=== PATIENT | female | born 1940 | race Caucasian/White ===

== ENCOUNTER 2022-02-23 13:45 | Emergency (ER) | payer MEDICARE ==
[2022-02-23 15:03] VITALS: RESP 16; TEMP 97.9
[2022-02-23] MEDS ORDERED: SILVER NITRATE APPLICATOR 1 EACH STICK..EA. TOPICAL STA (17:11)
[2022-02-23] MEDS ORDERED: OXYMETAZOLINE 0.05% NASL SPRAY 1 SPRAY BOTTLE NASAL STA (17:11)
[2022-02-23] MEDS ORDERED: LIDOCAINE/EPINEPHR/TETRACAINE 5 ML BOTTLE TOPICAL ONE (17:11)
--- NOTE | 2022-02-23 17:27 | ED ---
ENT HPI - General Chief complaint: ENT Stated complaint: Bloody Nose/started @1200 Time Seen by Provider: 02/23/22 17:10 Source: patient, RN notes reviewed Mode of arrival: ambulatory Limitations: no limitations - History of Present Illness Initial comments: This is a pleasant 81-year-old female with history of diabetes mellitus, hypertension, hyperlipidemia, and thyroid disorder. She presents to the emergency department today stating that she had a nosebleed that started around noon. Patient states this went on for quite some time and so she decided to come to the emergency department. Patient was given nose clips in the waiting room. Bleeding has ceased. Patient denies any other bleeding sites. Patient denies any current symptomology. Patient is not on anticoagulation therapy. Patient states she had a nosebleed in the winter when her house was dry. Patient also has some seasonal ALLERGIES. No headache, no fever or chills, no changes in vision or hearing, no sore throat or difficulty with speech, no neck pain, no chest pain or shortness of breath, no abdominal pain, no nausea or vomiting, no changes in urination or bowel movements, no numbness or tingling, no extremity pain, no skin rashes or lesions. - Related Data Allergies Allergy/AdvReac Type Severity Reaction Status Date / Time aspirin Allergy Unknown Verified 02/23/22 15:04 Penicillins Allergy Unknown Verified 02/23/22 15:04 tree nut Allergy Unknown Verified 02/23/22 15:04 Review of Systems ROS Statement: Those systems with pertinent positive or pertinent negative responses have been documented in the HPI. ROS Other: All systems not noted in ROS Statement are negative. Past Medical History Past Medical History: Diabetes Mellitus, Hyperlipidemia, Hypertension, Thyroid Disorder History of Any Multi-Drug Resistant Organisms: None Reported Past Surgical History: Appendectomy, Orthopedic Surgery, Tonsillectomy Additional Past Surgical History / Comment(s): thyroidectomy Past Psychological History: No Psychological Hx Reported Smoking Status: Never smoker Past Alcohol Use History: None Reported Past Drug Use History: None Reported General Exam Limitations: no limitations General appearance: alert, in no apparent distress Head exam: Present: atraumatic, normocephalic, normal inspection Eye exam: Present: normal appearance, PERRL, EOMI. Absent: scleral icterus, conjunctival injection, periorbital swelling ENT exam: Present: normal exam, normal oropharynx, mucous membranes moist, normal external ear exam, other (Patient has evidence of recent bleeding from the anterior aspect of the right nasal septum. No current bleeding. There is no notable clot. No occlusion. No evidence of perforation. No evidence appear or nasal discharge.). Absent: mucous membranes dry Expanded Ear exam: Present: normal external inspection Mouth exam: Present: normal external inspection. Absent: drooling, trismus, muffled voice, tongue normal, tongue elevation Teeth exam: Present: normal inspection Throat exam: normal inspection. negative: tonsillar erythema, tonsillomegaly, tonsillar exudate, R peritonsillar mass, L peritonsillar mass Neck exam: Present: normal inspection, full ROM. Absent: tenderness, meningismus, lymphadenopathy Respiratory exam: Present: normal lung sounds bilaterally. Absent: respiratory distress, wheezes, rales, rhonchi, stridor, chest wall tenderness, accessory muscle use, decreased breath sounds, prolonged expiratory Cardiovascular Exam: Present: regular rate, normal rhythm, normal heart sounds. Absent: systolic murmur, diastolic murmur, rubs, gallop, clicks GI/Abdominal exam: Present: soft, normal bowel sounds. Absent: distended, tenderness, guarding, rebound, rigid Extremities exam: Present: normal inspection, full ROM, normal capillary refill. Absent: tenderness, pedal edema, joint swelling, calf tenderness Back exam: Present: normal inspection Neurological exam: Present: alert, oriented X3, CN II-XII intact Psychiatric exam: Present: normal affect, normal mood Skin exam: Present: warm, dry, intact, normal color. Absent: rash Course Vital Signs 02/23/22 14:59 Temperature 97.9 F Pulse Rate 84 Respiratory 16 Rate Blood Pressure 148/68 O2 Sat by Pulse 95 Oximetry Medical Decision Making - Medical Decision Making Patient's bleeding had ceased by the time I saw her. She was in no distress. Vital signs reviewed. No evidence of systemic illness. We'll use Afrin nasal spray, 2 sprays each nostril every 12 hours for 3 days. Patient has a follow-up with her doctor on Friday. I did warn the patient with the possibility of rebleeding and the possibility that she would need to return to the emergency department for nasal packing. Patient was told to return to the ER for any signs or symptoms worsen. Told to return immediately if any other problems arise. All questions answered. Treatment plan discussed. Patient in agreement Every effort has been made to ensure accuracy of this dictation. However, due to the limitations of electronic medical records and dictation devices, errors in charting still occur. Supervising physician is Dr. Vijay Obregon Clinical Impression: Acute anterior epistaxis Disposition: HOME SELF-CARE Condition: Good Instructions (If sedation given, give patient instructions): Nosebleed (ED) Additional Instructions: Use the nasal spray, 2 sprays to each nostril every 12 hours for 3 days only. Follow-up with your regular physician as directed. Return to the ER immediately if any symptoms worsen, new symptoms arise, or any other problems develop. Is patient prescribed a controlled substance at d/c from ED?: No Referrals: Isaac Benitez MD [Primary Care Provider] - 03/01/22 Time of Disposition: 17:27
[2022-02-23 17:53] VITALS: BP 146/54; PULSE 68
== END 2022-02-24 02:25 | disposition home or self-care (01) ==
LOC: EC 13:45
DX: R04.0 Epistaxis (principal); I10 Essential (primary) hypertension; E11.9 Type 2 diabetes mellitus without complications; E78.5 Hyperlipidemia, unspecified; Z79.899 Other long term (current) drug therapy
CPT/HCPCS: 30901; 99283

== ENCOUNTER → 2022-09-09 | Outpatient (CLI) | payer MEDICARE ==
[2022-09-09 14:16] LABS: Basophils # (A) 0.02 X 10*3/uL (0.00-0.10); Basophils % (A) 0.5 %; Eosinophils # (A) 0.23 X 10*3/uL (0.04-0.35); HCT 33.6 % (37.2-46.3); HGB 10.7 g/dL (12.0-15.0); Immature Grans, Automated 0.3 %; Lymphocytes # (A) 0.83 X 10*3/uL (0.90-5.00); Lymphocytes % (A) 21.5 %; MCH 31.6 pg (27.0-32.0); MCHC 31.8 g/dL (32.0-37.0); MCV 99.1 fL (80.0-97.0); Mean Platelet Volume 11.2 fL (9.5-12.2); Monocytes # (A) 0.32 X 10*3/uL (0.20-1.00); Monocytes % (A) 8.3 %; NRBC Per 100 WBC 0 /100 WBCS (0.0-0.0); Neutrophils # (A) 2.45 X 10*3/uL (1.80-7.70); Neutrophils % (A) 63.4 %; Platelet Count 110 X 10*3/uL (140-440); RBC 3.39 X 10*6/uL (4.10-5.20); RDW 14.6 % (11.5-14.5); WBC 3.86 X 10*3/uL (4.50-10.00)
[2022-09-09 15:47] LABS: African American GFR (CKD) 43.3 (60.0-200.0); Anion Gap 9.7 mmol/L (10.00-18.00); Blood Urea Nitrogen 27.8 mg/dL (9.0-27.0); Carbon Dioxide 23.1 mmol/L (20.0-27.5); Non-African American GFR(CKD) 37.4 (60.0-200.0); Potassium 4.5 mmol/L (3.5-5.5)
== END | disposition home or self-care (01) ==
LOC: LABPAT 10:12
PROVIDERS: ATTEND Internal Medicine
DX: Z01.818 Encounter for other preprocedural examination (principal); R06.02 Shortness of breath
CPT/HCPCS: 80051; 82565; 84520; 85025

== ENCOUNTER 2022-09-18 09:35 | Day surgery (SDC) | payer MEDICARE ==
[~2022-09-18 09:35] MED LIST: ALPRAZolam 0.25 MG TAB PO PRN; ALPRAZolam 0.5 MG TAB PO PRN; ATORVASTATIN 80 MG TAB PO STA; NITROGLYCERIN SL TABS 0.4 MG TAB SUBLINGUAL PRN; SODIUM CHLORIDE 0.9% 1,000 ML in EMPTY BAG 1 BAG IV SCH
[2022-09-18 10:09] LABS: Glucose,Whole Blood 90 mg/dL (70-110)
[2022-09-18 10:15] LABS: Basophils % (A) 0 %; Eosinophils # (A) 0.2 k/uL (0-0.7); Eosinophils % (A) 4 %; HCT 36.1 % (34.0-46.0); HGB 11.9 gm/dL (11.4-16.0); Lymphocytes # (A) 0.8 k/uL (1.0-4.8); Lymphocytes % (A) 15 %; MCH 32.5 pg (25.0-35.0); MCHC 32.9 g/dL (31.0-37.0); MCV 98.9 fL (80.0-100.0); Monocytes # (A) 0.2 k/uL (0-1.0); Monocytes % (A) 5 %; Neutrophils # (A) 3.8 k/uL (1.3-7.7); Neutrophils % (A) 74 %; Platelet Count 121 k/uL (150-450); RBC 3.65 m/uL (3.80-5.40); RDW 14.2 % (11.5-15.5); WBC 5.2 k/uL (3.8-10.6)
[2022-09-18 10:27] VITALS: RESP 16; TEMP 97.7
[2022-09-18] MEDS ORDERED: VERAPAMIL 2.5 MG/ML 2 ML AMP ONE (12:52)
[2022-09-18] MEDS ORDERED: fentaNYL (PF) 50 MCG/ML 2 ML AMP ONE (12:53)
[2022-09-18] MEDS ORDERED: HEPARIN SODIUM 1,000 UN/ML (10ML VL) ONE (12:53)
[2022-09-18] MEDS ORDERED: MIDAZOLAM 2 MG/2 ML VIAL IV ONE (12:58)
[2022-09-18] MEDS ORDERED: fentaNYL (PF) 50 MCG/ML 2 ML AMP IV ONE (12:58)
[2022-09-18] MEDS ORDERED: LIDOCAINE 1% INJ 10MG/ML (5 ML VIAL-PF) SQ ONE (12:59)
[2022-09-18] MEDS ORDERED: VERAPAMIL SYRINGE (5 MG/10 ML) INTRAARTER ONE (13:00)
[2022-09-18] MEDS ORDERED: HEPARIN SODIUM 1,000 UN/ML (10ML VL) IV ONE (13:03)
[2022-09-18] MEDS ORDERED: IOPAMIDOL-370 125ML BTL INJ ONE (13:13)
--- NOTE | 2022-09-18 13:27 | P.CARDCATH ---
Description of Procedure: PROCEDURES PERFORMED: Left heart catheterization, bilateral coronary angiography INDICATION: Abnormal stress test, dyspnea on exertion CONSENT:I have discussed the risks, benefits and alternative therapies for the above-mentioned procedure and for both sedation/analgesia as well as necessary blood product administration, if indicated, as they pertain to this patient. The patient has indicated understanding and acceptance of the risks and procedures discussed. PROCEDURE: After the risks, benefits and alternatives of the above mentioned procedure explained in detail with the patient, informed consent was obtained. Patient was taken to the catheterization lab and prepped and draped in usual fashion. She was given pre-hydration given chronic kidney disease. 1% lidocaine was used to anesthetize the right radial artery. A 6-Turkmen sheath was placed in the right radial artery using modified Seldinger technique. Left coronary angiography was performed with a 5-Turkmen JL 3.5 catheter and right coronary angiography was performed with a 6-Turkmen AR2 catheter in various views. A 5-Turkmen FR5 catheter was inserted into the left ventricle and pressure measurements were obtained. The right radial sheath was removed and a TR band was placed with hemostasis achieved. The patient tolerated the procedure well. Patient was transported back to the post catheterization holding area in stable condition. Conscious Sedation: Patient was monitored under the direct supervision of vision of myself for conscious sedation using Versed and fentanyl for a total duration of 12 minutes HEMODYNAMICS: Aorta: 106/78 LV: 110/4, LVEDP 12 SELECTIVE CORONARY ARTERIOGRAPHY: LEFT MAIN: The left main is a large caliber vessel which bifurcates into the LAD and circumflex. There is no significant stenosis. LEFT ANTERIOR DESCENDING CORONARY ARTERY: LAD is a large caliber vessel which wraps around to the apex. There is significant tortuosity as well as a mid LAD 10-20% stenosis and otherwise normal. LEFT CIRCUMFLEX CORONARY ARTERY: Left circumflex is a moderate caliber vessel without significant stenosis however is tortuous. RIGHT CORONARY ARTERY: The right coronary artery is a large caliber vessel which gives off a PDA and PLV branch and is the dominant vessel. There is no significant stenosis. FINAL IMPRESSION: 1. Relatively normal coronary arteries as described above other than mild mid LAD luminal irregularities and tortuosity 2. Normal left sided filling pressures PLAN: 1. Aggressive risk factor modification per most recent ACC/AHA guidelines. 2. Follow-up in the office in 1-2 weeks.
[2022-09-18 16:41] VITALS: BP 115/56; PULSE 58
== END 2022-09-18 17:25 | disposition home or self-care (01) ==
LOC: CATHCVL 09:35
PROVIDERS: ATTEND Internal Medicine
DX: I77.1 Stricture of artery (principal); I50.32 Chronic diastolic (congestive) heart failure; I11.0 Hypertensive heart disease with heart failure; E11.9 Type 2 diabetes mellitus without complications; E78.5 Hyperlipidemia, unspecified; E66.9 Obesity, unspecified
CPT/HCPCS: 85025; 93458; J2250; J2001; J3010; J1644; Q9967

== ENCOUNTER → 2024-07-28 | Outpatient (CLI) | payer MEDICARE ==
--- NOTE | 2024-07-28 08:49 | BD ---
EXAMINATION TYPE: Axial Bone Density DATE OF EXAM: 07/28/2024 CLINICAL HISTORY: 84 years old Female. ICD-10 CODE: M81.0 AGE-RELATED OSTEOPOROSIS W/ , Additional H istory: Height: 64 Weight: 228.0 FRAX RISK QUESTIONS: Alcohol (3 or more units per day): no Family History (Parent hip fracture): no Glucocorticoids (More than 3mos): no (Ex: prednisone, prednisolone, methylprednisolone, dexamethasone, and hydrocortisone). History of Fracture in Adulthood: no Secondary Osteoporosis: 1. Type 1 Diabetes: no 2. Hyperthyroidism: no 3. Menopause before 45: no 4. Malnutrition: no 5. Chronic liver disease: no Rheumatoid Arthritis: no Current Tobacco Use: no RISK FACTORS HISTORY OF: Hip Fracture (Right/Left): no Spine Fracture: no History of Wrist Fracture: no Surgery to Spine/Hip(right/left)/Wrist (right/left): no MEDICATIONS: Thyroid Medications: Levothyroxine How Long: since age 13 Osteoporosis Medications: no EXAM MEASUREMENTS: Bone mineral densitometry was performed using the Classical Connection System. Bone mineral density as measured about the Lumbar spine is: ----- L1-L4(G/cm2):0.882 T Score Values are as follows: ----- L1: -2.2 ----- L2: -3.1 ----- L3: -1.8 ----- L4: -2.9 ----- L1-L4: -2.5 Z Score Values are as follows: ----- L1: -1.5 ----- L2: -2.4 ----- L3: -1.1 ----- L4: -2.2 ----- L1-L4: -1.8 Baseline Study Bone mineral density about the R hip (g/cm2): 0.856 Bone mineral density about the L hip (g/cm2): 0.868 T Score values are as follows: -----R Neck: -2.0 -----L Neck: -1.0 -----R Total: -1.2 -----L Total: -1.1 Z Score values are as follows: -----R Neck: -0.5 -----L Neck: 0.5 -----R Total: 0.1 -----L Total: 0.2 Baseline Study FRAX%s: The graph provided illustrates a 14.3% chance for a major osteoporotic fx and a 4.3% chance f or the hips probability for fx in 10 years time. IMPRESSION: Osteopenia (T Score between -2.5 and -1). There is slightly increased risk of fracture and the patient may be considered for treatment. Re-Screen 2-5 years. NOTE: T-SCORE=SD OF THE YOUNG ADULT MEAN. [facility], , 07/28/2024 8:47 AM
[2024-07-28 15:08] LABS: Basophils # (A) 0.05 X 10*3/uL (0.00-0.10); Basophils % (A) 1.1 %; Eosinophils # (A) 0.35 X 10*3/uL (0.04-0.35); Eosinophils % (A) 7.6 %; HCT 35.6 % (37.2-46.3); HGB 11.5 g/dL (12.0-15.0); Lymphocytes # (A) 0.76 X 10*3/uL (0.90-5.00); Lymphocytes % (A) 16.6 %; MCH 33.2 pg (27.0-32.0); MCHC 32.3 g/dL (32.0-37.0); MCV 102.9 FL (80.0-97.0); Mean Platelet Volume 10.8 FL (9.5-12.2); Monocytes # (A) 0.47 X 10*3/uL (0.20-1.00); Monocytes % (A) 10.2 %; NRBC Per 100 WBC 0 X 10*3/uL (0.00-0.01); Neutrophils # (A) 2.95 X 10*3/uL (1.80-7.70); Neutrophils % (A) 64.3 %; Platelet Count 108 X 10*3/uL (140-440); RBC 3.46 X 10*6/uL (4.10-5.20); RDW 14.6 % (11.5-14.5); WBC 4.59 X 10*3/uL (4.50-10.00)
[2024-07-28 16:09] LABS: Chol/HDL Ratio 1.79 Ratio; LDL Cholesterol,Calculated 32.2 mg/dL (0.0-131.0); Uric Acid 7.7 mg/dL (2.9-7.7); VLDL Calculation 15.42 mg/dL (5.00-40.00)
[2024-07-28 16:10] LABS: ALT 30 U/L (8-44); AST 58 U/L (13-35); Albumin 3.3 g/dL (3.8-4.9); Albumin/Globulin Ratio 1.03 Ratio (1.60-3.17); Alkaline Phosphatase 91 U/L (41-126); BUN/Creat Ratio 18.86 Ratio (12.00-20.00); Blood Urea Nitrogen 26.4 mg/dL (9.0-27.0); Calcium 8.8 mg/dL (8.7-10.3); Carbon Dioxide 23.1 mmol/L (21.6-31.8); Chloride 110 mmol/L (96-109); Globulin 3.2 g/dL (1.6-3.3); Glucose 107 mg/dL (70-110); Potassium 4.2 mmol/L (3.5-5.5); Sodium 144 mmol/L (135-145); Total Bilirubin 2.7 mg/dL (0.3-1.2); Total Protein 6.5 g/dL (6.2-8.2)
[2024-07-28 16:12] LABS: Erythrocyte Sedimentation Rate 32 mm/Hr (0-30)
--- NOTE | 2024-07-30 11:13 | MM ---
Reason for Exam: Screening (asymptomatic). Last mammogram was performed 6 year(s) and 5 month(s) ago. Patient History: Menarche at age 13. Patient has no children. Maternal cousin had breast cancer at or over age 50. Last menstrual period: Risk Values: Shazia 5 year model risk: 1.7%. NCI Lifetime model risk: 2.0%. Prior Study Comparison: 07/14/2015 Bilateral Screening Mammogram, [facility]. 07/18/2016 Bilateral Screening Mammogram, [facility]. 03/01/2018 Bilateral Screening Mammogram, [facility]. Tissue Density: There are scattered areas of fibroglandular density. Findings: Analyzed By CAD. Right breast: Enlarging mass right breast RCC view slightly lateral and slightly lower at posterior depth approximately 13 cm from the nipple measuring up to 21 mm. Left breast: There is no suspicious group of microcalcifications or new suspicious mass. Overall Assessment: Incomplete: need additional imaging evaluation, BI-RAD 0 Management: Diagnostic Breast Ultrasound of the right breast. [facility] will attempt to contact patient to return for supplemental views and ultrasound if indicated. Patient should continue monthly self-breast exams. A clinical breast exam by your physician is recommended on an annual basis. This exam should not preclude additional follow-up of suspicious palpable abnormalities. Note on Shazia scores and lifetime risk: 1. A Shazia score greater than 3% is considered moderate risk. If this is the case, consider specialist referral to assess eligibility for a risk reducing agent. 2. If overall lifetime risk for the development of breast cancer is 20% or higher, the patient may qualify for future screening with alternating mammogram and breast MRI. [facility], , 07/30/2024 11:10 AM. Electronically signed and approved by: Jitendra Zhong DO
== END | disposition home or self-care (01) ==
LOC: RADMAMWWP 07:18
PROVIDERS: ATTEND Internal Medicine Geriatric Medicine
DX: Z12.31 Encounter for screening mammogram for malignant neoplasm of breast (principal); M81.0 Age-related osteoporosis without current pathological fracture; I13.0 Hypertensive heart and chronic kidney disease with heart failure and stage 1 through stage 4 chronic kidney disease, or unspecified chronic kidney disease; D64.9 Anemia, unspecified; E11.22 Type 2 diabetes mellitus with diabetic chronic kidney disease; E78.2 Mixed hyperlipidemia; E03.9 Hypothyroidism, unspecified; M81.8 Other osteoporosis without current pathological fracture; Z80.3 Family history of malignant neoplasm of breast; R92.323 Mammographic fibroglandular density, bilateral breasts
CPT/HCPCS: 77063; 77067; 77080; 80053; 80061; 83036; 84443; 84550; 85025; 85652

== ENCOUNTER → 2024-08-04 | Outpatient (CLI) | payer MEDICARE ==
--- NOTE | 2024-08-04 15:13 | USB ---
Reason for Exam: Additional evaluation requested from abnormal screening. Patient History: Menarche at age 13. Patient has no children. Maternal cousin had breast cancer at or over age 50. Risk Values: Shazia 5 year model risk: 1.7%. NCI Lifetime model risk: 2.0%. Prior Study Comparison: 07/18/2016 Bilateral Screening Mammogram, [facility]. 03/01/2018 Bilateral Screening Mammogram, [facility]. 07/28/2024 Bilateral MG 3D screening mammo w/cad, [facility]. Findings: The whole breast of the right breast, the axilla of the right breast and the retroareolar of the right breast were scanned. A complete US of all four quadrants of the breast, axilla, and retro-areolar region were reviewed. At the 5:00 position, 9 cm from the nipple, there is an irregular hypoechoic solid mass with angular margins and internal vascularity measuring 2.0 x 1.9 x 1.6 cm, mammographic correlate, biopsy is recommended. At the 7:00 position, 10 cm from the nipple, there are 3 closely grouped hypoechoic areas. Biopsy is recommended of the deeper bilobed hypoechoic lesion measuring 1.6 x 1.0 x 1.4 cm. The other 2 areas measure 2.0 x 1.3 x 0.5 cm and 0.8 x 0.5 cm and can be followed. At the 10:00 position, 5 cm from the nipple, there is a lobulated heterogeneous lesion with internal vascularity measuring 1.6 x 1.2 x 1.1 cm for which tissue sampling is recommended. At the 10:00 position, also 5 cm from the nipple, there is a nonspecific hypoechoic lesion too small to characterize measuring 4 mm. No other solid or cystic lesion or axillary lymphadenopathy. Overall Assessment: Highly suggestive of malignancy, BI-RAD 5 Management: Ultrasound Core Biopsy of the right breast. 3 site biopsy, 5:00 very suspicious mammographic correlate as well as the 7:00 and 10:00 positions. Results were given to the patient verbally at the time of exam. [facility], , 08/04/2024 3:10 PM. Electronically signed and approved by: Wilman Velásquez M.D. Radiologist
== END | disposition home or self-care (01) ==
LOC: RADUSWWP 14:08
PROVIDERS: ATTEND Internal Medicine Geriatric Medicine
DX: R92.8 Other abnormal and inconclusive findings on diagnostic imaging of breast (principal); Z80.3 Family history of malignant neoplasm of breast

== ENCOUNTER → 2024-08-23 | Day surgery (SDC) | payer MEDICARE ==
--- NOTE | 2024-08-30 10:15 | MM ---
Reason for Exam: Post Procedure Mammogram. Last screening mammogram was performed less than 1 month ago. Patient History: Menarche at age 13. Patient has no children. Maternal cousin had breast cancer at or over age 50. Risk Values: Shazia 5 year model risk: 1.7%. NCI Lifetime model risk: 2.0%. Prior Study Comparison: 07/18/2016 Bilateral Screening Mammogram, [facility]. 03/01/2018 Bilateral Screening Mammogram, [facility]. 07/28/2024 Bilateral MG 3D screening mammo w/cad, [facility]. Tissue Density: Right: There are scattered areas of fibroglandular density. Pathology Description: Location: 7 o'clock. Marker Left Behind. Needle Type: Celero Cores: 5 Pathology Description: Location: 5 o'clock. Marker Left Behind. Needle Type: Celero Cores: 3 The procedure of ultrasound guided core biopsy was explained to the patient. Benefits, alternatives, and risks were discussed. An informed consent was then obtained. The patient was placed in supine positioning for imaging and for the procedure. The overlying skin was prepped and draped in usual sterile fashion. Lidocaine buffered with bicarbonate was used as anesthetic into the skin and subcutaneous tissue up to area of concern in the right 5:00 and right 7:00 breast. A discrete third lesion was not identified Under ultrasound guidance, a 12-gauge vacuum assisted biopsy gun device was used to obtain 3 core samples from the right 5:00 lesion and 5 samples from the right 7:00 lesion. Following this, a biopsy clips were placed within each lesion. The patient tolerated the procedure well without any immediate complication. The patient was kept in the radiology department for short stay after the procedure and then discharged home in stable condition. Postprocedure mammogram: The patient was transferred to mammography for physician ordered post procedure mammogram for clip placement verification. Post procedure mammogram demonstrates the clip in appropriate placement. Impression: Successful, uncomplicated ultrasound guided core biopsy of 2 lesions within the right breast at the 5 and 7:00 positions. As noted a discrete 10:00 lesion could not be identified and likely reflected lobulation from the 7:00 lesion. Consider MRI for improved characterization. Pathology Results: Result: Malignant, Invasive ductal carcinoma. Pathology and radiology were reviewed. Findings are concordant. A. RIGHT BREAST, 5:00, CORE BIOPSY: Invasive ductal carcinoma, preliminarily Grade 2 (see Surgical Pathology Cancer Case Summary and comment). Perineural invasion present. B. RIGHT BREAST, 7:00, CORE BIOPSY: Fragments of intraductal papilloma with columnar cell change and usual ductal hyperplasia. Overall Assessment: Malignant Assessment: MG diagnostic mammo RT wo CAD - Right: Known biopsy proven malignancy, BI-RAD 6. Management: Surgical Consultation of the right breast. Electronically signed and approved by: Mir Florentino M.D. Radiologis
== END ==
LOC: RADUSWWP 12:39
PROVIDERS: ATTEND Surgery
DX: C50.911 Malignant neoplasm of unspecified site of right female breast (principal); Z80.3 Family history of malignant neoplasm of breast; Z17.0 Estrogen receptor positive status [ER+]
CPT/HCPCS: 88305; 88342; 88341; 77065; 19083; 19084; A4648

== ENCOUNTER → 2024-09-10 | Outpatient (CLI) | payer MEDICARE ==
--- NOTE | 2024-09-15 08:46 | BMR ---
EXAM DATE: 09/10/2024 EXAM DESCRIPTION: MRI-Breast Bilat (W/WO Contrast) INDICATION: Recent diagnosis of right breast cancer. Right breast 5 o'clock core biopsy invasive ductal carcinoma, 7 o'clock intraductal papilloma COMPARISON: PRIOR MRIs: None available. Correlation to mammograms: 08/23/2024, 07/28/2024. Correlation to ultrasound: 08/23/2024. CONTRAST: 10 cc Gadavist IV gadolinium contrast TECHNIQUE: Multiplanar multisequence MR imaging of both breasts was performed with a dedicated breast coil. Images were obtained before and after administration of IV gadolinium, using the standard breast mass protocol. Computer aided detection was utilized for interpretation. FINDINGS: LMP: Postmenopausal General breast composition: There are scattered areas of fibroglandular tissue Background parenchymal enhancement: Moderate RIGHT BREAST: Positioning of the breast for correlation with mammogram and prior ultrasound is somewhat limited given breast size. Irregular heterogeneously enhancing mass in the right breast at approximately 6 o'clock, measures 2.8 x 2.6 x 2.0 cm approximately 10 cm from the nipple corresponding to site of note malignancy. There is a lobulated 1.8 x 1.5 cm mass in the right breast approximately 12 o'clock, 5 cm from the nipple with heterogeneous enhancement and areas of washout kinetics. No evidence of abnormal enhancement of the nipple or chest wall. LEFT BREAST: The T2 weighted series shows no areas of abnormal signal intensity. Review of the dynamic series shows no early or abnormal enhancement. LYMPH NODES: Enlarged right internal mammary lymph node measuring 0.7 cm in short axis. 0.7 cm cardiophrenic lymph node. Miscellaneous findings:Pulmonary arterial trunk appears prominent. There is mildly lobulated contour of the liver with perihepatic ascites. Abnormal signal intensity within the right aspect of the sternum. IMPRESSION: RIGHT BREAST: Positioning of the breast for correlation with mammogram and prior ultrasound is somewhat limited given breast size. 1. Known malignancy at approximately 6 o'clock measures 2.8 x 2.6 x 2.0 cm 2. Additional enhancing mass at 12 o'clock, 5 cm from the nipple estimating 1.8 x 1.5 cm, potentially corresponding to ultrasound mass reported as 10 o'clock. Targeted ultrasound with biopsy is recommended if breast conservation is planned. 3. Enlarged right internal mammary and cardiophrenic lymph nodes with lobulated appearance of the liver and perihepatic ascites, abnormal sternal signal intensity. CT of the chest, abdomen, and pelvis is recommended to assess for metastasis. LEFT BREAST: No MR evidence of malignancy. OVERALL ASSESSMENT -- BI-RADS 4: Suspicious for malignancy MTDD
== END | disposition home or self-care (01) ==
LOC: RADMRIMAIN 13:55
PROVIDERS: ATTEND Surgery
DX: C50.811 Malignant neoplasm of overlapping sites of right female breast (principal); N63.22 Unspecified lump in the left breast, upper inner quadrant; N63.25 Unspecified lump in the left breast, overlapping quadrants; R18.8 Other ascites
CPT/HCPCS: C8908; A9585; 77049

== ENCOUNTER → 2024-09-27 | Outpatient (CLI) | payer MEDICARE ==
--- NOTE | 2024-09-27 09:27 | USB ---
Reason for Exam: Additional evaluation requested from prior study. Patient History: Menarche at age 13. Patient has no children. Breast cancer, right, age 84. 08/23/2024, US biopsy breast add'l VAD RT on the Right side. 08/23/2024, Malignant US biopsy breast VAD RT on the right side. Maternal cousin had breast cancer at or over age 50. Technique: Method: Targeted. Prior Study Comparison: 03/01/2018 Bilateral Screening Mammogram, [facility]. 07/28/2024 Bilateral MG 3D screening mammo w/cad, [facility]. 08/23/2024 Right MG diagnostic mammo RT wo CAD, [facility]. Findings: The upper section of the breast of the right breast, the axilla of the right breast and the retroareolar of the right breast were scanned. Targeted ultrasound right breast 9:00 to 3:00 including the 7:00 position. Scanning of the axilla as well. At 9:00, 7 cm from the nipple, there is a nonspecific 7 mm cystic versus hypoechoic structure. In contrast bolus could reflect debris artifact. At 9:00, 3 cm from the nipple, there is a benign 6 mm cyst. At the 10:00 position, 3 cm from the nipple, there is a lobulated heterogeneous hypoechoic lesion with some faint marginal vascularity. Internal calcifications are suggested. However, on antiradial imaging, the area appears to be bilobed measuring up to 3.0 cm (image 28 of 45) and demonstrates a microclip at the midpoint of the 2 lobes probably corresponding to the 7:00 biopsy site. We note recent biopsy results from 7:00 position showed papilloma. Recommend repeat biopsy of both the shadowing area and the soft tissue nodularity. Again, refer to the ultrasound image 28. This likely corresponds to the reported 12:00 abnormality on MRI. Heterogeneous dense tissue is present throughout including the 12:00 position. No axillary adenopathy. Overall Assessment: Known biopsy proven malignancy, BI-RAD 6 Management: Ultrasound Core Biopsy of the right breast. Bilobed 10:00 lesion (refer to image 28 of 45). Recommend sampling of both the shadowing area and soft tissue nodularity. Likely corresponds to the 12:00 MRI abnormality. Given the presence of a microclip, a portion of this also likely corresponds to the 7:00 biopsied papilloma. Results were given to the patient verbally at the time of exam. [facility], , 09/27/2024 9:24 AM. Electronically signed and approved by: Wilman Velásquez M.D. Radiologist
== END | disposition home or self-care (01) ==
LOC: RADUSWWP 07:49
PROVIDERS: ATTEND Surgery
DX: R90.81 Abnormal echoencephalogram (principal); Z80.3 Family history of malignant neoplasm of breast; Z85.3 Personal history of malignant neoplasm of breast

== ENCOUNTER → 2024-09-30 | Outpatient (CLI) | payer MEDICARE ==
--- NOTE | 2024-10-02 12:00 | PE ---
EXAMINATION TYPE: PET CT fusion skull to thigh DATE OF EXAM: 09/30/2024 CLINICAL INDICATION:Female, 84 years old with history of C50.311 BREAST CANCER; TECHNIQUE: Following the intravenous administration of 12.09 mCi of F-18 FDG, whole body images are performed from the skull base to the midthigh. Images are reviewed on the computer in the coronal, axial, and sagittal planes. Reconstructed rotating images are created on independent workstation and reviewed on the computer. A non-contrast CT is performed in conjunction with the PET scan. Glucose level 96 mg/dL CT DLP: 936.92 mGycm, Automated exposure control for dose reduction was used. COMPARISON: CT None, PET/CT None, MRI: 09/10/2024 FINDINGS: Mediastinal SUV mean is 2.3. Hepatic parenchyma SUV mean is 2.5. SKULL BASE AND NECK: No suspicious radiotracer activity. CHEST, MEDIASTINUM, AND HILAR REGION: Right breast mass at 6:00 measuring 1.9 cm with a maximum SUV of 3.2. No FDG avid axillary lymphadenopathy identified. ABDOMEN AND PELVIS: Enlarged 2.5 cm FDG avid mesenteric lymph node (series 3, image 159). Demonstrates a maximum SUV of 1 5.7. MUSCULOSKELETAL STRUCTURES: No suspicious radiotracer activity. OTHER CT: Bilateral aphakia. Bilateral carotid bulb calcifications. Bilateral AC joint arthropathy. A therosclerotic calcification of the aorta and its branches. Dilated main pulmonary artery measuring u p to 4.1 cm which can be seen with pulmonary arterial hypertension. Cardiomegaly. Small right pleural effusion. Lingular calcified granuloma. Multiple level degenerative changes of the visualized spine. Small amount of free fluid in the pelvis. Small fat filled umbilical hernia. Trace perihepatic ascit es. Suggestive recanalization umbilical vein. Suggested subtle nodularity of the liver. IMPRESSION: 1. Mildly FDG avid right breast lesion corresponding to known breast cancer. 2. FDG avid enlarged mesenteric lymph node highly concerning for metastasis. 3. Subtle surface nodularity of the liver with trace perihepatic ascites and suggestive recanalizati on of the umbilical vein. Correlate for hepatic cirrhosis. 4. Small right pleural effusion. [facility], , 10/02/2024 11:58 AM
== END | disposition home or self-care (01) ==
LOC: RADPETMAIN 09:26
PROVIDERS: ATTEND Internal Medicine Hematology & Oncology
DX: C50.311 Malignant neoplasm of lower-inner quadrant of right female breast (principal); J90 Pleural effusion, not elsewhere classified; R59.0 Localized enlarged lymph nodes
CPT/HCPCS: 78815; A9552

== ENCOUNTER → 2024-10-04 | Day surgery (SDC) | payer MEDICARE ==
--- NOTE | 2024-10-05 08:26 | USB ---
Procedure Description: Discontinued right breast biopsy Findings: Technique utilized:US discontinued breast bx RT Image; Ultrasound imaging of: Area of concern. no bill, no charge. Limited imaging of the breast at 10:00 5 cm from nipple demonstrates lesion with biopsy clip placed. The appearance of this demonstrates ASSESSMENT: 4 - Suspicious. Management: Needle Localization of the right breast. Area of concern has a different morphology on today's exam and there is a biopsy clip in place. This was previously biopsied is a high risk lesion. No procedure was performed. Ordering provider was notified and will contact the patient. A clinical breast exam by your physician is recommended on an annual basis and results should be correlated with mammographic findings. This exam should not preclude additional follow-up of suspicious palpable abnormalities. Results were given to the patient verbally at the time of exam. [facility], , 10/04/2024 2:45 PM . Electronically signed and approved by: Jitendra Zhong DO
== END ==
LOC: RADUSWWP 11:58
PROVIDERS: ATTEND Surgery
DX: Z53.8 Procedure and treatment not carried out for other reasons (principal); R92.8 Other abnormal and inconclusive findings on diagnostic imaging of breast

== ENCOUNTER 2024-11-21 04:25 | Inpatient (IN) | payer MEDICARE ==
--- NOTE | 2024-11-21 04:44 | ED ---
General Adult HPI <Ki Mckinney - Last Filed: 11/21/24 08:43> - General Source: patient, EMS, RN notes reviewed, old records reviewed Mode of arrival: EMS Limitations: no limitations <Jitendra Aguilar - Last Filed: 11/21/24 21:01> - General Chief complaint: Chest Pain Stated complaint: Chest Pain Time Seen by Provider: 11/21/24 04:28 - History of Present Illness Initial comments: 84-year-old female with an episode of chest discomfort which began approximately 1 hour prior to arrival. Patient describes it as a pain pressure across her chest. No associated vomiting. No diaphoresis. No prior history of CAD. Patient states the pain is completely resolved at this time. Denies dyspnea. Denies fever. (Jitendra Aguilar) - Related Data Home Medications Medication Instructions Recorded Confirmed Atorvastatin [Lipitor] 40 mg PO HS 09/17/22 11/21/24 Ergocalciferol [Vitamin D2 (1250 1,250 mcg PO Q14D 09/17/22 11/21/24 Mcg = 49327 Iu)] Furosemide [Lasix] 20 mg PO DAILY 09/17/22 11/21/24 Levothyroxine Sodium [Synthroid] 125 mcg PO DAILY 09/17/22 11/21/24 lisinopriL 2.5 mg PO DAILY 09/17/22 11/21/24 metFORMIN HCL 500 mg PO BID 09/17/22 11/21/24 Allergies Allergy/AdvReac Type Severity Reaction Status Date / Time aspirin Allergy Unknown Verified 11/21/24 10:38 Penicillins Allergy Rash/Hives Verified 11/21/24 10:38 codeine AdvReac Nausea & Verified 11/21/24 10:38 Vomiting Review of Systems ROS Other: All systems not noted in ROS Statement are negative. <Ki Mckinney - Last Filed: 11/21/24 08:43> ROS Other: All systems not noted in ROS Statement are negative. <Jitendra Aguilar - Last Filed: 11/21/24 21:01> ROS Statement: Those systems with pertinent positive or pertinent negative responses have been documented in the HPI. Past Medical History Past Medical History: Cancer, Chest Pain / Angina, Diabetes Mellitus, Hyperlipidemia, Hypertension, Osteoarthritis (OA), Skin Disorder, Thyroid Disorder Additional Past Medical History / Comment(s): SOB w/minimal exertion, frequent foot swelling, gallstone, ?blood clot behind knee back in the s, leg cramps; Aug 2024 dx right breast cancer, chronic loose bowels, bruises easy History of Any Multi-Drug Resistant Organisms: None Reported Past Surgical History: Appendectomy, Joint Replacement, Orthopedic Surgery, Tonsillectomy Additional Past Surgical History / Comment(s): thyroidectomy, right wrist surg, cataracts removed, left knee replacement, colonoscopies Past Anesthesia/Blood Transfusion Reactions: No Reported Reaction Past Psychological History: No Psychological Hx Reported Smoking Status: Never smoker Past Alcohol Use History: None Reported Past Drug Use History: None Reported - Past Family History Mother Family Medical History: COPD Additional Family Medical History / Comment(s): of emphysema Father Family Medical History: Cancer Additional Family Medical History / Comment(s): lung <Jitendra Aguilar N - Last Filed: 11/21/24 21:01> General Exam Limitations: no limitations General appearance: alert, in no apparent distress Head exam: Present: atraumatic, normocephalic Eye exam: Present: normal appearance, PERRL ENT exam: Present: normal exam Neck exam: Present: normal inspection. Absent: tenderness, meningismus Respiratory exam: Present: normal lung sounds bilaterally. Absent: respiratory distress, wheezes Cardiovascular Exam: Present: regular rate, normal rhythm GI/Abdominal exam: Present: soft. Absent: distended, tenderness Extremities exam: Present: normal inspection, normal capillary refill Neurological exam: Present: alert, oriented X3, CN II-XII intact. Absent: motor sensory deficit Psychiatric exam: Present: normal affect, normal mood Skin exam: Present: warm, dry, intact <Jitendra Aguilar - Last Filed: 11/21/24 21:01> Course Vital Signs 11/21/24 11/21/24 11/21/24 04:30 05:35 07:37 Temperature 97.7 F 97.8 F Pulse Rate 89 84 72 Respiratory 16 16 20 Rate Blood Pressure 125/58 102/51 123/52 O2 Sat by Pulse 97 95 95 Oximetry 11/21/24 11/21/24 11/21/24 09:25 10:40 14:00 Temperature Pulse Rate 64 59 L 63 Respiratory 18 18 20 Rate Blood Pressure 120/52 132/55 118/60 O2 Sat by Pulse 97 97 96 Oximetry 11/21/24 11/21/24 11/21/24 15:20 18:22 19:53 Temperature 97.8 F 98.1 F Pulse Rate 62 73 72 Respiratory 20 16 16 Rate Blood Pressure 121/59 121/62 122/74 O2 Sat by Pulse 95 96 94 L Oximetry Medical Decision Making - Lab Data Result diagrams: 11/21/24 04:37 11/21/24 04:37 <Ki Mckinney - Last Filed: 11/21/24 08:43> - Lab Data Result diagrams: 11/21/24 04:37 11/21/24 04:37 <Jitendra Aguilar - Last Filed: 11/21/24 21:01> - Medical Decision Making Patient care signed out to me pending second troponin. Patient briefly is a 84-year-old female presents to the emergency department chest discomfort. Patient had workup including labs and imaging. She did have an infiltrate on her lung suspicious for pneumonia. Laboratory evaluation obtained. Labs within patient's baseline. Repeat troponin is elevated at 0.073. Clinical presentation consistent with NSTEMI. Patient pain-free at the bedside. Started on heparin given aspirin and will be admitted. Case discussed with hospitalist for admission. Diagnosis/symptom? @ -NSTEMI Acute, or Chronic, or Acute on Chronic? @ -Acute Uncomplicated (without systemic symptoms) or Complicated (systemic symptoms)? @ -[default] Side effects of treatment? @ -[none] Exacerbation, Progression, or Severe Exacerbation] @ -[no] Poses a threat to life or bodily function? @ -Yes Critical care time 33 minutes (Ki Mckinney) Was pt. sent in by a medical professional or institution (, PA, JOINER, urgent care, hospital, or alf...) When possible be specific @ -No Did you speak to anyone other than the patient for history (EMS, parent, family, police, friend...)? What history was obtained from this source @ -No Did you review nursing and triage notes (agree or disagree)? Why? @ -I reviewed and agree with nursing and triage notes Were old charts reviewed (outside hosp., previous admission, EMS record, old EKG, old radiological studies, urgent care reports/EKG's, alf records)? Report findings @ -No old charts were reviewed Differential Chest Pain: Stable Angina, Unstable Angina, STEMI, NSTEMI Aortic Dissection, Pneumothorax, Musculoskeletal, Esophageal Spasm GERD, Cholecystitis, Pancreatitis, Zoster, this is not meant to be an all-inclusive list. EKG interpreted by me (3pts min.). @ -Sinus rhythm rate of 86 SC interval 157, QRS duration 117, QTc [address] segment elevation X-rays interpreted by me (1pt min.). @Infiltrate in the left lower lobe on two-view chest x-ray CT interpreted by me (1pt min.). @ -None done U/S interpreted by me (1pt. min.). @ -None done What testing was considered but not performed or refused? (CT, X-rays, U/S, labs)? Why? @ -None What meds were considered but not given or refused? Why? @ -None Did you discuss the management of the patient with other professionals (professionals i.e. , PA, JOINER, lab, RT, psych nurse, social insurance administrator, neonatal specialist, teacher, geological technical officer, returned case inspector)? Give summary @ -No Was smoking cessation discussed for >3mins.? @ -No Was critical care preformed (if so, how long)? @ -No Were there social determinants of health that impacted care today? How? (Homelessness, low income, unemployed, alcoholism, drug addiction, transportation, low edu. Level, literacy, decrease access to med. care, group home, rehab)? @ -No Was there de-escalation of care discussed even if they declined (Discuss DNR or withdrawal of care, Hospice)? DNR status @ -No What co-morbidities impacted this encounter? (DM, HTN, Smoking, COPD, CAD, Cancer, CVA, ARF, Chemo, Hep., AIDS, mental health diagnosis, sleep apnea, morbid obesity)? @ -None Was patient admitted / discharged? Hospital course, mention meds given and route, prescriptions, significant lab abnormalities, going to OR and other pertinent info. @ -84-year-old female with an episode of chest discomfort which is resolved at the time my evaluation. EKG is sinus rhythm. Patient received chest x-ray which does show concern for left lower lobe infiltrate. She has had a dry cough. No fever. No dyspnea. Viral panel has been ordered, results pending. Patient's initial troponin is negative. We discussed possibility of admission for second troponin given the onset of symptoms just prior to arrival. Patient prefers discharge home but is agreeable to second troponin in the emergency department. Care will be signed out at shift change awaiting repeat troponin and viral panel. (Jitendra Aguilar) - Lab Data Lab Results 11/21/24 11/21/24 11/21/24 Range/Units 04:37 04:37 04:37 WBC 3.5 L (3.8-10.6) k/uL RBC 3.45 L (3.80-5.40) m/uL Hgb 11.4 (11.4-16.0) gm/dL Hct 37.0 (34.0-46.0) % MCV 107.3 H (80.0-100.0) fL MCH 33.0 (25.0-35.0) pg MCHC 30.7 L (31.0-37.0) g/dL RDW 14.8 (11.5-15.5) % Plt Count 92 L (150-450) k/uL MPV 8.9 Neutrophils % 54 % Lymphocytes % 29 % Monocytes % 6 % Eosinophils % 8 % Basophils % 0 % Neutrophils # 1.9 (1.3-7.7) k/uL Lymphocytes # 1.0 (1.0-4.8) k/uL Monocytes # 0.2 (0-1.0) k/uL Eosinophils # 0.3 (0-0.7) k/uL Basophils # 0.0 (0-0.2) k/uL Manual Slide Review Performed Hypochromasia Slight Poikilocytosis (manual Present Macrocytosis Marked A PT 13.2 H (10.0-12.5) sec INR 1.2 H (<1.2) APTT 24.0 (22.0-30.0) sec Sodium 144 (137-145) mmol/L Potassium 3.6 (3.5-5.1) mmol/L Chloride 113 H (98-107) mmol/L Carbon Dioxide 21 L (22-30) mmol/L Anion Gap 10 mmol/L BUN 23 H (7-17) mg/dL Creatinine 1.31 H (0.52-1.04) mg/dL Est GFR (CKD-EPI)AfAm 43 (>60 ml/min/1.73 sqM) Est GFR (CKD-EPI)NonAf 38 (>60 ml/min/1.73 sqM) Glucose 71 L (74-99) mg/dL Calcium 8.9 (8.4-10.2) mg/dL Magnesium 1.7 (1.6-2.3) mg/dL Total Bilirubin 2.5 H (0.2-1.3) mg/dL AST 58 H (14-36) U/L ALT 28 (4-34) U/L Alkaline Phosphatase 84 (38-126) U/L Troponin I (0.000-0.034) ng/mL Total Protein 6.4 (6.3-8.2) g/dL Albumin 2.9 L (3.5-5.0) g/dL Influenza Type A (PCR) (Not Detectd) Influenza Type B (PCR) (Not Detectd) RSV (PCR) (Not Detectd) SARS-CoV-2 (PCR) (Not Detectd) 11/21/24 11/21/24 11/21/24 Range/Units 04:37 06:09 07:38 WBC (3.8-10.6) k/uL RBC (3.80-5.40) m/uL Hgb (11.4-16.0) gm/dL Hct (34.0-46.0) % MCV (80.0-100.0) fL MCH (25.0-35.0) pg MCHC (31.0-37.0) g/dL RDW (11.5-15.5) % Plt Count (150-450) k/uL MPV Neutrophils % % Lymphocytes % % Monocytes % % Eosinophils % % Basophils % % Neutrophils # (1.3-7.7) k/uL Lymphocytes # (1.0-4.8) k/uL Monocytes # (0-1.0) k/uL Eosinophils # (0-0.7) k/uL Basophils # (0-0.2) k/uL Manual Slide Review Hypochromasia Poikilocytosis (manual Macrocytosis PT (10.0-12.5) sec INR (<1.2) APTT (22.0-30.0) sec Sodium (137-145) mmol/L Potassium (3.5-5.1) mmol/L Chloride (98-107) mmol/L Carbon Dioxide (22-30) mmol/L Anion Gap mmol/L BUN (7-17) mg/dL Creatinine (0.52-1.04) mg/dL Est GFR (CKD-EPI)AfAm (>60 ml/min/1.73 sqM) Est GFR (CKD-EPI)NonAf (>60 ml/min/1.73 sqM) Glucose (74-99) mg/dL Calcium (8.4-10.2) mg/dL Magnesium (1.6-2.3) mg/dL Total Bilirubin (0.2-1.3) mg/dL AST (14-36) U/L ALT (4-34) U/L Alkaline Phosphatase (38-126) U/L Troponin I 0.019 0.073 H* (0.000-0.034) ng/mL Total Protein (6.3-8.2) g/dL Albumin (3.5-5.0) g/dL Influenza Type A (PCR) Not Detected (Not Detectd) Influenza Type B (PCR) Not Detected (Not Detectd) RSV (PCR) Not Detected (Not Detectd) SARS-CoV-2 (PCR) Not Detected (Not Detectd) Disposition Decision Time: 08:44 <Ki Mckinney - Last Filed: 11/21/24 08:43> <Jitendra Aguilar - Last Filed: 11/21/24 21:01> Clinical Impression: NSTEMI (non-ST elevated myocardial infarction) Disposition: ADMITTED IP TO THIS HOSP Condition: Fair
[2024-11-21 04:57] LABS: ALT 28 U/L (4-34); AST 58 U/L (14-36); African American GFR (CKD) 43 (>60 ml/min/1.73 sqM); Albumin 2.9 g/dL (3.5-5.0); Alkaline Phosphatase 84 U/L (38-126); Anion Gap 10 mmol/L; Blood Urea Nitrogen 23 mg/dL (7-17); Calcium 8.9 mg/dL (8.4-10.2); Carbon Dioxide 21 mmol/L (22-30); Chloride 113 mmol/L (98-107); Glucose 71 mg/dL (74-99); Magnesium 1.7 mg/dL (1.6-2.3); Non-African American GFR(CKD) 38 (>60 ml/min/1.73 sqM); Potassium 3.6 mmol/L (3.5-5.1); Sodium 144 mmol/L (137-145); Total Bilirubin 2.5 mg/dL (0.2-1.3); Total Protein 6.4 g/dL (6.3-8.2)
[2024-11-21 05:11] LABS: INR 1.2 (<1.2); Prothrombin Time 13.2 sec (10.0-12.5)
[2024-11-21 05:46] LABS: Basophils % (A) 0 %; Eosinophils # (A) 0.3 k/uL (0-0.7); Eosinophils % (A) 8 %; HGB 11.4 gm/dL (11.4-16.0); Hypochromasia Slight; Lymphocytes % (A) 29 %; MCHC 30.7 g/dL (31.0-37.0); MCV 107.3 fL (80.0-100.0); Macrocytosis Marked; Mean Platelet Volume 8.9; Monocytes # (A) 0.2 k/uL (0-1.0); Monocytes % (A) 6 %; Neutrophils # (A) 1.9 k/uL (1.3-7.7); Neutrophils % (A) 54 %; RBC 3.45 m/uL (3.80-5.40); RDW 14.8 % (11.5-15.5); WBC 3.5 k/uL (3.8-10.6)
--- NOTE | 2024-11-21 05:56 | XR ---
EXAM: XR Chest, 2 Views CLINICAL HISTORY: ITS.REASON XR Reason: Chest Pain TECHNIQUE: Frontal and lateral views of the chest. COMPARISON: No relevant prior studies available. FINDINGS: Lungs: Consolidative opacity is seen within the posterior left lower lobe. The right lung is clear. Pleural space: Unremarkable. No pneumothorax. Heart: Unremarkable. No cardiomegaly. Mediastinum: Unremarkable. Normal mediastinal contour. Bones/joints: Degenerative changes are seen in the spine and shoulders. No acute fracture. Vasculature: Calcifications overlie the aorta. IMPRESSION: Left lower lobe pneumonia.
[2024-11-21 06:28] LABS: Platelet Count 92 k/uL (150-450); Poikilocytosis (M) Present
[2024-11-21 06:47] LABS: Influenza A Not Detected (Not Detectd); Influenza B Not Detected (Not Detectd); RSV Not Detected (Not Detectd)
[2024-11-21] MEDS ORDERED: NITROGLYCERIN SL TABS 0.4 MG TAB SUBLINGUAL PRN (08:42)
[2024-11-21] MEDS ORDERED: HEPARIN SODIUM 1,000 UN/ML (10ML VL) IV PRN (08:48)
[2024-11-21 08:51] LABS: Glucose,Whole Blood 93 mg/dL (70-110)
[2024-11-21] MEDS: ASPIRIN 81 MG PO STA (09:32)
[2024-11-21] MEDS: HEPARIN SODIUM 1,000 UN/ML (10ML VL) IV ONE (09:36)
[2024-11-21] MEDS: HEPARIN SOD,PORK IN 0.45% NACL 25,000 UNIT in 0.45% NACL 1 250ML.BAG IV SCH (09:37)
[2024-11-21] MEDS: ISOSORBIDE MONONITRATE ER 30 MG TAB.ER.24H PO SCH (10:40)
--- NOTE | 2024-11-21 13:23 | CONS ---
CONSULTATION CHIEF COMPLAINT: Chest pain. HISTORY OF PRESENT ILLNESS: Rufina is an 84-year-old lady with history of [id number] diabetes, hypertension, hypothyroidism, and dyslipidemia, who developed sudden onset chest pain yesterday. She states that she woke up from sleep with what she describes as a bandlike sensation across her chest, moderate intensity, called the EMS, and was brought to the hospital. The pain gradually subsided than she has had in the EMS and she did not have further episodes of chest pain. At the time of my evaluation in the emergency room, she appears comfortable at rest, stable hemodynamically, and saturating well. Her troponin initially was 0.019 and a second troponin came back elevated at 0.073. She has recently been diagnosed with breast cancer and was supposed to undergo breast surgery tomorrow. Her clinical presentation is consistent with [id number] elevation TX, and I am going to advise her to undergo cardiac catheterization tomorrow. She had a cardiac catheterization [address] Moser that did not reveal significant CAD. I will check a D-dimer on her. PAST MEDICAL HISTORY: Significant for diabetes, hypertension, hypothyroidism, and dyslipidemia. ALLERGIES: To aspirin, penicillin, and codeine. FAMILY HISTORY: Negative for premature coronary artery disease. SOCIAL HISTORY: Negative for current smoking, EtOH abuse, or drug abuse. REVIEW OF SYSTEMS: A review of systems has been performed. Pertinent are as documented. PHYSICAL EXAMINATION: GENERAL: Comfortable at rest. VITAL SIGNS: Stable. NECK: There is no jugular venous distention. Carotid upstroke is normal. There is no bruit. CHEST: Reveals good air entry bilaterally. HEART: Reveals first and second heart sounds. No gallop. No murmur. No rub. ABDOMEN: Soft. Nontender. EXTREMITIES: Did not reveal any edema. Peripheral pulses are felt. ASSESSMENT AND PLAN: 1. Acute onn-GP-cdsamoc elevation myocardial infarction. 2. Recent diagnosis of breast cancer. 3. Hypertension. 4. Diabetes. 5. Dyslipidemia. PLAN: The patient will be treated with heparin, nitrates, statin, obtain a 2D echo, and schedule her for a catheterization tomorrow. I also checked a D-dimer, and if necessary investigate it further. MMODL / IJN: [id number] /
--- NOTE | 2024-11-21 19:01 | P.HPIM ---
History of Present Illness H&P Date: 11/21/24 Chief Complaint: Chest Pain 84-year-old female, history of hypertension, hyperlipidemia, hypothyroidism, diabetes mellitus, with an episode of chest discomfort which began approximately 1 hour prior to arrival. Patient describes it as a pain pressure across her chest. No associated vomiting. No diaphoresis. No prior history of CAD. Patient states the pain is completely resolved at this time. Denies dyspnea. Denies fever. Blood work completed in ED reveals a WBC of 3.5, hemoglobin of 11.4 and platelet count of 92, sodium 144, potassium 3.6, BUNs/creatinine of 23/1.31 and blood glucose of 71, D-dimer of 5.48, total bilirubin of 2.5 with AST of 58 EKG reveals sinus rhythm with rate of 86, MS interval 157, QRS duration 117, QTc 439, no acute ST or T wave changes Chest x-ray reveals left lower lobe infiltrate Patient has been placed on IV heparin and is being admitted for further cardiology evaluation Review of Systems REVIEW OF SYSTEMS: CONSTITUTIONAL: No fever, no malaise, no fatigue. HEENT: No recent visual problems or hearing problems. Denied any sore throat. CARDIOVASCULAR: No chest pain, orthopnea, PND, no palpitations, no syncope. PULMONARY: No shortness of breath, no cough, no hemoptysis. GASTROINTESTINAL: No diarrhea, no nausea, no vomiting, no abdominal pain. NEUROLOGICAL: No headaches, no weakness, no numbness. HEMATOLOGICAL: Denies any bleeding or petechiae. GENITOURINARY: Denies any burning micturition, frequency, or urgency. MUSCULOSKELETAL/RHEUMATOLOGICAL: Denies any joint pain, swelling, or any muscle pain. ENDOCRINE: Denies any polyuria or polydipsia. The rest of the 14-point review of systems is negative. Past Medical History Past Medical History: Cancer, Chest Pain / Angina, Diabetes Mellitus, Hyperlipidemia, Hypertension, Osteoarthritis (OA), Skin Disorder, Thyroid Disorder Additional Past Medical History / Comment(s): SOB w/minimal exertion, frequent foot swelling, gallstone, ?blood clot behind knee back in the ', leg cramps; Aug 2024 dx right breast cancer, chronic loose bowels, bruises easy History of Any Multi-Drug Resistant Organisms: None Reported Past Surgical History: Appendectomy, Joint Replacement, Orthopedic Surgery, Tonsillectomy Additional Past Surgical History / Comment(s): thyroidectomy, right wrist surg, cataracts removed, left knee replacement, colonoscopies Past Anesthesia/Blood Transfusion Reactions: No Reported Reaction Past Psychological History: No Psychological Hx Reported Smoking Status: Never smoker Past Alcohol Use History: None Reported Past Drug Use History: None Reported - Past Family History Mother Family Medical History: COPD Additional Family Medical History / Comment(s): of emphysema Father Family Medical History: Cancer Additional Family Medical History / Comment(s): lung Medications and Allergies Home Medications Medication Instructions Recorded Confirmed Type Atorvastatin [Lipitor] 40 mg PO HS 09/17/22 11/21/24 History Ergocalciferol [Vitamin D2 (1250 1,250 mcg PO Q14D 09/17/22 11/21/24 History Mcg = 00471 Iu)] Furosemide [Lasix] 20 mg PO DAILY 09/17/22 11/21/24 History Levothyroxine Sodium [Synthroid] 125 mcg PO DAILY 09/17/22 11/21/24 History lisinopriL 2.5 mg PO DAILY 09/17/22 11/21/24 History metFORMIN HCL 500 mg PO BID 09/17/22 11/21/24 History Allergies Allergy/AdvReac Type Severity Reaction Status Date / Time aspirin Allergy Unknown Verified 11/21/24 10:38 Penicillins Allergy Rash/Hives Verified 11/21/24 10:38 codeine AdvReac Nausea & Verified 11/21/24 10:38 Vomiting Physical Exam Vitals: Vital Signs Temp Pulse Resp BP Pulse Ox 11/21/24 09:25 64 18 120/52 97 11/21/24 07:37 97.8 F 72 20 123/52 95 11/21/24 05:35 84 16 102/51 95 11/21/24 04:30 97.7 F 89 16 125/58 97 Intake and Output 11/20/24 11/21/24 11/21/24 22:59 06:59 14:59 Other: Weight 104.326 kg General appearance: alert, in no apparent distress Head exam: Present: atraumatic, normocephalic Eye exam: Present: normal appearance, PERRL ENT exam: Present: normal exam Neck exam: Present: normal inspection. Absent: tenderness, meningismus Respiratory exam: Present: normal lung sounds bilaterally. Absent: respiratory distress, wheezes Cardiovascular Exam: Present: regular rate, normal rhythm GI/Abdominal exam: Present: soft. Absent: distended, tenderness Extremities exam: Present: normal inspection, normal capillary refill Neurological exam: Present: alert, oriented X3, CN II-XII intact. Absent: motor sensory deficit Psychiatric exam: Present: normal affect, normal mood Skin exam: Present: warm, dry, intact Results CBC & Chem 7: 11/21/24 04:37 11/21/24 04:37 Labs: Abnormal Lab Results - Last 24 Hours (Table) 11/21/24 11/21/24 11/21/24 Range/Units 04:37 04:37 04:37 WBC 3.5 L (3.8-10.6) k/uL RBC 3.45 L (3.80-5.40) m/uL MCV 107.3 H (80.0-100.0) fL MCHC 30.7 L (31.0-37.0) g/dL Plt Count 92 L (150-450) k/uL Macrocytosis Marked A PT 13.2 H (10.0-12.5) sec INR 1.2 H (<1.2) Chloride 113 H (98-107) mmol/L Carbon Dioxide 21 L (22-30) mmol/L BUN 23 H (7-17) mg/dL Creatinine 1.31 H (0.52-1.04) mg/dL Glucose 71 L (74-99) mg/dL Total Bilirubin 2.5 H (0.2-1.3) mg/dL AST 58 H (14-36) U/L Troponin I (0.000-0.034) ng/mL Albumin 2.9 L (3.5-5.0) g/dL 11/21/24 Range/Units 07:38 WBC (3.8-10.6) k/uL RBC (3.80-5.40) m/uL MCV (80.0-100.0) fL MCHC (31.0-37.0) g/dL Plt Count (150-450) k/uL Macrocytosis PT (10.0-12.5) sec INR (<1.2) Chloride (98-107) mmol/L Carbon Dioxide (22-30) mmol/L BUN (7-17) mg/dL Creatinine (0.52-1.04) mg/dL Glucose (74-99) mg/dL Total Bilirubin (0.2-1.3) mg/dL AST (14-36) U/L Troponin I 0.073 H* (0.000-0.034) ng/mL Albumin (3.5-5.0) g/dL Assessment and Plan Assessment: 1. Chest pain/NSTEMI -Initial troponin is elevated at 0.113; EKG does not reveal any acute ST or T wave changes -Patient received aspirin in ED and has been placed on IV heparin per protocol -We will admit to telemetry; monitor EKG and trend troponin; 2D echo -Consult cardiology 2. Acute renal injury; BUNs/creatinine elevated at 23/1.31; we will maintain on slow IV fluid hydration; monitor strict NICHOLAS's, daily weights, renal function electrolytes; avoid nephrotoxins and hypotension 3. Elevated liver enzymes; AST mildly elevated at 58 with total bilirubin of 2.5; we will order right upper quadrant ultrasound and monitor liver enzymes 4. Elevated D-dimer; CTA of the chest could not be completed because of elevated creatinine; patient is currently on IV heparin for NSTEMI; we will order VQ scan for tomorrow morning; order bilateral lower extremity venous Doppler 5. Hypertension; lisinopril 2.5 mg daily; Imdur 30 mg daily 6. Hyperlipidemia; Lipitor 40 mg p.o. nightly 7. Hypothyroidism; levothyroxine 125 mcg daily 8. Diabetes mellitus type 2; metformin 500 mg twice daily; monitor Accu-Cheks q. ACH S with insulin sliding scale 9. CAD/CHF; patient takes aspirin, statins and Imdur; Lasix 20 mg daily DVT prophylaxis; SCD/IV heparin CODE STATUS; full code
[2024-11-21 20:25] LABS: Albumin 2.6 g/dL (3.5-5.0); Bilirubin, Delta 0.3 mg/dL (0.0-0.2); Bilirubin,Unconjugated 2.2 mg/dL (0.0-1.1); Total Bilirubin 2.5 mg/dL (0.2-1.3); Total Protein 5.8 g/dL (6.3-8.2)
--- NOTE | 2024-11-21 20:40 | US ---
EXAMINATION TYPE: US venous doppler duplex LE BI DATE OF EXAM: 11/21/2024 6:59 PM COMPARISON: NONE CLINICAL INDICATION: Female, 84 years old with history of Elevated D-dimer; Bilateral leg swelling, n o redness, IV heparin, Pain TECHNIQUE: The lower extremity deep venous system is examined utilizing real time linear array sonog parrish with graded compression, color doppler sonography, and spectral doppler. SIDE PERFORMED: Bilateral FINDINGS: VESSELS IMAGED: Common Femoral Vein Deep Femoral Vein Greater Saphenous Vein * Femoral Vein Popliteal Vein Small Saphenous Vein * Proximal Calf Veins (* superficial vessels) Limited bilateral FV compressions due to patient unable to tolerate Right Leg: Negative for DVT, Color Doppler imaging shows patency of the vessels. Spectral waveforms are within normal limits. Left Leg: Negative for DVT, Color Doppler imaging shows patency of the vessels. Spectral waveforms a re within normal limits. IMPRESSION: No ultrasound evidence for deep venous thrombosis. [facility], , 11/21/2024 8:37 PM
[2024-11-21] MEDS: ATORVASTATIN 40 MG TAB PO SCH (21:01)
[2024-11-21] MEDS: metFORMIN 500 MG TAB PO SCH (21:03)
[2024-11-22] MEDS: LEVOTHYROXINE 125 MCG TAB PO SCH (06:53)
--- NOTE | 2024-11-22 07:24 | P.PN ---
Subjective 84-year-old female, history of hypertension, hyperlipidemia, hypothyroidism, diabetes mellitus, with an episode of chest discomfort which began approximately 1 hour prior to arrival. Patient describes it as a pain pressure across her chest. No associated vomiting. No diaphoresis. No prior history of CAD. Patient states the pain is completely resolved at this time. Denies dyspnea. Denies fever. Blood work completed in ED reveals a WBC of 3.5, hemoglobin of 11.4 and platelet count of 92, sodium 144, potassium 3.6, BUNs/creatinine of 23/1.31 and blood glucose of 71, D-dimer of 5.48, total bilirubin of 2.5 with AST of 58 EKG reveals sinus rhythm with rate of 86, OK interval 157, QRS duration 117, QTc 439, no acute ST or T wave changes Chest x-ray reveals left lower lobe infiltrate Patient has been placed on IV heparin and is being admitted for further cardiology evaluation 11/22 This is a pleasant 84 years old female who presents because of chest pain, found to have non-STEMI and placed on heparin drip and aspirin 325 mg as well as other cardiac medication This morning she is awake alert and looks comfortable, no chest pain no dyspnea no other GI symptoms. Patient could walk to the bathroom by herself. Patient states that she has chronic soft stool and she has chronic shortness of breath that is been going on for years for both of the symptoms. Patient also is a known case of right breast cancer that she follow-up with Dr. Aranda and she planned to undergo right breast lumpectomy today with Dr. Somers which is obviously it is held Patient remains on heparin drip, aspirin 325 mg. D-dimer elevated at 5.4, ultrasound of the leg is negative for DVT. Creatinine is elevated at 1.3 which is baseline and VQ scan is requested and is pending Echocardiogram is pending as well as well ultrasound of the liver for mildly elevated liver enzymes Active Medications Generic Name Dose Route Start Last Admin Trade Name Freq PRN Reason Stop Dose Admin Aspirin 325 mg 11/22/24 09:00 Aspirin 325 Mg Tab PO DAILY [facility] Atorvastatin Calcium 40 mg 11/21/24 21:00 11/21/24 21:01 Atorvastatin 40 Mg Tab PO 40 mg HS DORIE Administration Furosemide 20 mg 11/22/24 09:00 Furosemide 20 Mg Tab PO DAILY DOR[facility] Heparin Sodium (Porcine) 0 unit 11/21/24 08:48 Heparin Sodium 1,000 Un/Ml (10ml Vl) IV PER PROTOCOL PRN Low PTT Protocol Heparin Sodium/Sodium Chloride 250 mls @ 10 mls/hr 11/21/24 08:45 11/21/24 16:46 25,000 unit/ Sodium Chloride IV 7.585 units/kg/hr .Q24H DORIE 7.913 mls/hr Titration Protocol 9.585 UNITS/KG/HR Isosorbide Mononitrate 30 mg 11/21/24 10:30 11/21/24 10:40 Isosorbide Mononitrate Er 30 Mg Tab.Er.24h PO 30 mg DAILY DORIE Administration Levothyroxine Sodium 125 mcg 11/22/24 06:30 11/22/24 06:53 Levothyroxine 125 Mcg Tab PO 125 mcg DAILY@0630 DORIE Administration Lisinopril 2.5 mg 11/21/24 10:30 11/21/24 10:40 Lisinopril 2.5 Mg Tab PO 2.5 mg DAILY DORIE Administration Metformin HCl 500 mg 11/21/24 21:00 11/21/24 21:03 Metformin 500 Mg Tab PO Not Given BID DORIE Nitroglycerin 0.4 mg 11/21/24 08:42 Nitroglycerin Sl Tabs 0.4 Mg Tab SUBLINGUAL Q5M PRN Chest Pain Objective - Vital Signs Vital signs: Vital Signs Temp 98.1 F 11/21/24 19:53 Pulse 68 11/22/24 06:32 Resp 18 11/22/24 06:32 BP 126/61 11/22/24 06:32 Pulse Ox 96 11/22/24 06:32 FiO2 Intake & Output 11/21/24 11/22/24 11/22/24 18:59 06:59 18:59 Intake Total 71.5 Balance 71.5 Intake: Intake, IV Titration 71.5 Amount Heparin Sod,Pork in 0.45% 71.5 NaCl 25,000 unit In 0.45 % NaCl 1 250ml.bag @ 9. 585 UNITS/KG/HR 10 mls/hr IV .Q24H [facility] Rx#: [id number] - Exam GENERAL: The patient is alert and oriented x3, not in any acute distress. Well developed, well nourished. HEENT: Pupils are round and equally reacting to light. EOMI. No scleral icterus. No conjunctival pallor. Normocephalic, atraumatic. No pharyngeal erythema. No thyromegaly. CARDIOVASCULAR: S1 and S2 present. No murmurs, rubs, or gallops. PULMONARY: Chest is clear to auscultation, no wheezing , no crackles. ABDOMEN: Soft, nontender, nondistended, normoactive bowel sounds. No palpable organomegaly. MUSCULOSKELETAL: No joint swelling or deformity. EXTREMITIES: No cyanosis, clubbing, or pedal edema. NEUROLOGICAL: Gross neurological examination did not reveal any focal deficits. SKIN: No rashes. no petechiae. - Labs CBC & Chem 7: 11/21/24 04:37 11/21/24 04:37 Labs: Abnormal Lab Results - Last 24 Hours (Table) 11/21/24 11/21/24 11/21/24 Range/Units 07:38 11:14 11:14 APTT (22.0-30.0) sec D-Dimer 5.48 H (<0.60) mg/L FEU Total Bilirubin (0.2-1.3) mg/dL Unconjugated Bilirubin (0.0-1.1) mg/dL Delta Bilirubin (0.0-0.2) mg/dL AST (14-36) U/L Troponin I 0.073 H* 0.113 H* (0.000-0.034) ng/mL Total Protein (6.3-8.2) g/dL Albumin (3.5-5.0) g/dL 11/21/24 11/21/24 11/21/24 Range/Units 11:14 15:56 15:56 APTT 72.9 H (22.0-30.0) sec D-Dimer (<0.60) mg/L FEU Total Bilirubin 2.5 H (0.2-1.3) mg/dL Unconjugated Bilirubin 2.2 H (0.0-1.1) mg/dL Delta Bilirubin 0.3 H (0.0-0.2) mg/dL AST 56 H (14-36) U/L Troponin I 0.100 H* (0.000-0.034) ng/mL Total Protein 5.8 L (6.3-8.2) g/dL Albumin 2.6 L (3.5-5.0) g/dL 11/21/24 Range/Units 22:51 APTT 57.1 H (22.0-30.0) sec D-Dimer (<0.60) mg/L FEU Total Bilirubin (0.2-1.3) mg/dL Unconjugated Bilirubin (0.0-1.1) mg/dL Delta Bilirubin (0.0-0.2) mg/dL AST (14-36) U/L Troponin I (0.000-0.034) ng/mL Total Protein (6.3-8.2) g/dL Albumin (3.5-5.0) g/dL Assessment and Plan Assessment: 1. Chest pain/NSTEMI -Initial troponin is elevated at 0.113; EKG does not reveal any acute ST or T wave changes -Patient received aspirin in ED and has been placed on IV heparin per protocol -We will admit to telemetry; monitor EKG and trend troponin; 2D echo -Consult cardiology 2. Possible chronic kidney disease rather than acute renal injury; BUNs/creatinine elevated at 23/1.31; we will maintain on slow IV fluid hydration; monitor strict NICOHLAS's, daily weights, renal function electrolytes; avoid nephrotoxins and hypotension 3. Elevated liver enzymes; AST mildly elevated at 58 with total bilirubin of 2.5; we will order right upper quadrant ultrasound and monitor liver enzymes : Negative for DVT 4. Elevated D-dimer; CTA of the chest could not be completed because of elevated creatinine; patient is currently on IV heparin for NSTEMI; we will order VQ scan for tomorrow morning; bilateral lower extremity venous Doppler 5. Hypertension; lisinopril 2.5 mg daily; Imdur 30 mg daily 6. Hyperlipidemia; Lipitor 40 mg p.o. nightly 7. Hypothyroidism; levothyroxine 125 mcg daily 8. Diabetes mellitus type 2; metformin 500 mg twice daily; monitor Accu-Cheks q. ACH S with insulin sliding scale 9. CAD/CHF; patient takes aspirin, statins and Imdur; Lasix 20 mg daily 10. Mild leukopenia and thrombocytopenia, close monitoring 11. Right breast cancer that she follow-up with Dr. Aranda, she planned to undergo lumpectomy of the right breast with Dr. Aguero on 11/22 which is canceled because of her hospitalization DVT prophylaxis; SCD/IV heparin GI prophylaxis: Pepcid CODE STATUS; full code
--- NOTE | 2024-11-22 07:40 | US ---
EXAMINATION TYPE: US liver DATE OF EXAM: 11/22/2024 COMPARISON: PET CT 09/30/2024 CLINICAL INDICATION: Female, 84 years old with history of Elevated liver enzyme; Hx Breast and Skin c ancer, Presented for Chest Pain and SARI. Hx Gallstones TECHNIQUE: Grayscale and color Doppler imaging of the right upper quadrant was performed. FINDINGS: EXAM MEASUREMENTS: Liver Length: 14.4 cm Gallbladder Wall: 0.2 cm CBD: 1.1 cm Right Kidney: 9.1 x 4.5 x 4.9 cm CRISIS INTERVENTION COUNSELOR NOTES: Pancreas: Tail obscured by overlying bowel gas Liver: wnl Gallbladder: ? Stones and sludge seen; Pericholecystic fluid seen. Evidence for sonographic Bush's sign: No CBD: Dilated Right Kidney: wnl Trace fluid seen all four quadrents IMPRESSION: Biliary sludge/cholelithiasis with pericholecystic fluid. Correlate for signs and symptoms of cholecy stitis. Negative sonographic Bush's sign. Consider further evaluation with MRI given dilated common bile duct to exclude choledocholithiasis. [facility], , 11/22/2024 7:38 AM
[2024-11-22 08:15] LABS: Basophils % (A) 0 %; Eosinophils # (A) 0.2 k/uL (0-0.7); Eosinophils % (A) 8 %; HCT 34.1 % (34.0-46.0); HGB 10.4 gm/dL (11.4-16.0); Hypochromasia Slight; Lymphocytes # (A) 0.6 k/uL (1.0-4.8); Lymphocytes % (A) 22 %; MCH 32.8 pg (25.0-35.0); MCHC 30.5 g/dL (31.0-37.0); MCV 107.8 fL (80.0-100.0); Macrocytosis Marked; Mean Platelet Volume 8.8; Monocytes # (A) 0.1 k/uL (0-1.0); Monocytes % (A) 5 %; Neutrophils # (A) 1.7 k/uL (1.3-7.7); Neutrophils % (A) 62 %; RBC 3.17 m/uL (3.80-5.40); RDW 14.6 % (11.5-15.5); WBC 2.7 k/uL (3.8-10.6)
[2024-11-22] MEDS ORDERED: NITROGLYCERIN SL TABS 0.4 MG TAB SUBLINGUAL PRN ×2 (08:23→11:12)
[2024-11-22] MEDS ORDERED: ALPRAZolam 0.25 MG TAB PO PRN ×2 (08:23→11:12)
[2024-11-22] MEDS ORDERED: ALPRAZolam 0.5 MG TAB PO PRN ×2 (08:23→11:12)
[2024-11-22 08:26] LABS: Platelet Count 86 k/uL (150-450)
[2024-11-22 08:50] LABS: African American GFR (CKD) 45 (>60 ml/min/1.73 sqM); Anion Gap 5 mmol/L; Blood Urea Nitrogen 26 mg/dL (7-17); Calcium 8.3 mg/dL (8.4-10.2); Carbon Dioxide 24 mmol/L (22-30); Chloride 111 mmol/L (98-107); Glucose 98 mg/dL (74-99); Non-African American GFR(CKD) 39 (>60 ml/min/1.73 sqM); Potassium 4.3 mmol/L (3.5-5.1); Sodium 140 mmol/L (137-145)
[2024-11-22] MEDS ORDERED: ASPIRIN 325 MG TAB PO SCH (09:00)
--- NOTE | 2024-11-22 09:42 | CT ---
EXAMINATION TYPE: CT angio chest DATE OF EXAM: 11/22/2024 9:26 AM COMPARISON: Pet/CT 09/30/2024 CLINICAL INDICATION: Female, 84 years old with history of elevated ddimer r/o PE; ELEVATED D-DIMER TECHNIQUE/CONTRAST: CTA scan of the thorax is performed with IV Contrast, patient injected with 80 ML mL of Isovue 370, M IP images are created and reviewed these are created on a separate workstation.. CT DLP: 378.6 mGycm, Automated exposure control for dose reduction was used. FINDINGS: Lungs/Pleura: No evidence of focal consolidation, or pneumothorax. Small right pleural effusion. X. Airway: Large airways are patent. Heart: Cardiomegaly is demonstrated. No significant coronary artery calcifications. Vasculature: There is no evidence for a filling defect within the pulmonary vasculature to suggest ac [place] pulmonary embolism. The pulmonary artery is dilated up to 37 mm. Mediastinum: No gross evidence of adenopathy.r prominent epicardial fat lymph nodes on the left anter ior aspect measuring up to 6 mm. Musculoskeletal: No acute osseous abnormalities Soft Tissues/lymph nodes: Right breast mass measuring 21 x 18 mm measures similarly given differences in measuring technique up to 20 mm. Nodule there is a biopsy clip present series 401 image 92 more i nferiorly measuring 13 x 7 mm present which is also present on prior PET/CT. Lower neck: No significant findings. Upper Abdomen: Small free fluid in the abdomen the spleen is enlarged up to 15.4 cm's. Nodular contou r to liver. Recanalization of paraumbilical vein and upper abdominal varicosities. IMPRESSION: 1. No evidence of pulmonary embolism. 2. Evidence of pulmonary hypertension 3. Hepatic cirrhosis with evidence of portal hypertension. With small ascites upper abdominal varicos ities and spinal megaly. 4. Right breast mass with measuring 18 x 20 mm which is similar in size a biopsy clip present. More l aterally and inferiorly is a 13 x 7 mm lesion which may be increasing in size from prior PET/CT on . In the inferior lateral breast no FDG activity was seen on the pet/CT where it was smaller. Mammographic workup and management recommended 5. Right epicardial fat lymph nodes are more prominent 6. Mild cardiomegaly. [facility], , 11/22/2024 9:39 AM
[2024-11-22] MEDS: ASPIRIN 81 MG PO SCH (09:57)
[2024-11-22] MEDS: METOPROLOL TARTRATE 25 MG TAB PO SCH ×2 (09:57→10:25)
[2024-11-22] MEDS: FUROSEMIDE 20 MG TAB PO SCH (09:58)
[2024-11-22] MEDS: FAMOTIDINE 20 MG/2 ML VIAL IV SCH (09:59)
[2024-11-22] MEDS: ASPIRIN 325 MG TAB PO STA (10:03)
[2024-11-22] MEDS: ATORVASTATIN 80 MG TAB PO STA (10:03)
[2024-11-22] MEDS: SODIUM CHLORIDE 0.9% 1,000 ML in EMPTY BAG 1 BAG IV SCH ×2 (10:03→21:50)
[2024-11-22] MEDS: SODIUM CHLORIDE 0.9% 1,000 ML IV SCH (10:10)
[2024-11-22] MEDS: METOPROLOL TARTRATE 12.5 MG TAB PO SCH (10:37)
[2024-11-22 10:59] LABS: African American GFR (CKD) 46 (>60 ml/min/1.73 sqM); Anion Gap 6 mmol/L; Blood Urea Nitrogen 25 mg/dL (7-17); Calcium 8.7 mg/dL (8.4-10.2); Carbon Dioxide 25 mmol/L (22-30); Chloride 110 mmol/L (98-107); Glucose 102 mg/dL (74-99); Non-African American GFR(CKD) 40 (>60 ml/min/1.73 sqM); Potassium 4.4 mmol/L (3.5-5.1); Sodium 141 mmol/L (137-145)
--- NOTE | 2024-11-22 11:16 | P.PN ---
Subjective HISTORY OF PRESENT ILLNESS: This is an 84-year-old female who follows in the office with Dr. Moser. Patient is admitted to the hospital secondary to non-STEMI. Patient examined this morning in the emergency room. Patient currently denies chest pain or pressure. She denies shortness of breath. Patient with elevated D-dimer of 5.48. CTA negative for pulmonary embolism. Vital signs are stable. PHYSICAL EXAM: VITAL SIGNS: Reviewed. GENERAL: Well-developed in no acute distress. NECK: Supple. No JVD or thyromegaly LUNGS: Respirations even and unlabored. Lungs essentially clear to auscultation bilaterally. HEART: Regular rate and rhythm. S1 and S2 heard. EXTREMITIES: Normal range of motion. No clubbing or cyanosis. Peripheral p ulses intact. No lower extremity edema ASSESSMENT: Non-STEMI Recent diagnosis of breast cancer Hypertension Hyperlipidemia Diabetes Normal coronary arteries, per cardiac catheterization 2022 PLAN: 2D echo ordered. Await results. Continue IV Heparin. Continue current cardiac medications including aspirin, atorvastatin, Lasix, Imdur, and lisinopril Add small dose of metoprolol to tartrate 12.5 mg twice a day N.p.o. at midnight Patient to undergo cardiac catheterization tomorrow with Dr. Galvan Further recommendations pending patient course Nurse practitioner note has been reviewed by physician. Signing provider agrees with the documented findings, assessment, and plan of care documented by SENIOR PROJECT ENGINEER as a scribe. Objective - Vital Signs Vital signs: Vital Signs Temp 97.6 F 11/22/24 09:52 Pulse 53 L 11/22/24 10:08 Resp 18 11/22/24 10:08 BP 112/55 11/22/24 10:08 Pulse Ox 98 11/22/24 10:08 FiO2 Intake & Output 11/21/24 11/22/24 11/22/24 18:59 06:59 18:59 Intake Total 71.5 Balance 71.5 Intake: Intake, IV Titration 71.5 Amount Heparin Sod,Pork in 0.45% 71.5 NaCl 25,000 unit In 0.45 % NaCl 1 250ml.bag @ 9. 585 UNITS/KG/HR 10 mls/hr IV .Q24H [facility] Rx#: [id number] - Labs CBC & Chem 7: 11/22/24 07:46 11/22/24 09:36 Labs: Abnormal Lab Results - Last 24 Hours (Table) 11/21/24 11/21/24 11/21/24 Range/Units 11:14 11:14 11:14 WBC (3.8-10.6) k/uL RBC (3.80-5.40) m/uL Hgb (11.4-16.0) gm/dL MCV (80.0-100.0) fL MCHC (31.0-37.0) g/dL Plt Count (150-450) k/uL Lymphocytes # (1.0-4.8) k/uL Macrocytosis APTT (22.0-30.0) sec D-Dimer 5.48 H (<0.60) mg/L FEU Chloride (98-107) mmol/L BUN (7-17) mg/dL Creatinine (0.52-1.04) mg/dL Glucose (74-99) mg/dL Calcium (8.4-10.2) mg/dL Total Bilirubin 2.5 H (0.2-1.3) mg/dL Unconjugated Bilirubin 2.2 H (0.0-1.1) mg/dL Delta Bilirubin 0.3 H (0.0-0.2) mg/dL AST 56 H (14-36) U/L Troponin I 0.113 H* (0.000-0.034) ng/mL Total Protein 5.8 L (6.3-8.2) g/dL Albumin 2.6 L (3.5-5.0) g/dL 11/21/24 11/21/24 11/21/24 Range/Units 15:56 15:56 22:51 WBC (3.8-10.6) k/uL RBC (3.80-5.40) m/uL Hgb (11.4-16.0) gm/dL MCV (80.0-100.0) fL MCHC (31.0-37.0) g/dL Plt Count (150-450) k/uL Lymphocytes # (1.0-4.8) k/uL Macrocytosis APTT 72.9 H 57.1 H (22.0-30.0) sec D-Dimer (<0.60) mg/L FEU Chloride (98-107) mmol/L BUN (7-17) mg/dL Creatinine (0.52-1.04) mg/dL Glucose (74-99) mg/dL Calcium (8.4-10.2) mg/dL Total Bilirubin (0.2-1.3) mg/dL Unconjugated Bilirubin (0.0-1.1) mg/dL Delta Bilirubin (0.0-0.2) mg/dL AST (14-36) U/L Troponin I 0.100 H* (0.000-0.034) ng/mL Total Protein (6.3-8.2) g/dL Albumin (3.5-5.0) g/dL 11/22/24 11/22/24 11/22/24 Range/Units 07:46 07:46 07:46 WBC 2.7 L (3.8-10.6) k/uL RBC 3.17 L (3.80-5.40) m/uL Hgb 10.4 L (11.4-16.0) gm/dL MCV 107.8 H (80.0-100.0) fL MCHC 30.5 L (31.0-37.0) g/dL Plt Count 86 L (150-450) k/uL Lymphocytes # 0.6 L (1.0-4.8) k/uL Macrocytosis Marked A APTT 52.9 H (22.0-30.0) sec D-Dimer (<0.60) mg/L FEU Chloride 111 H (98-107) mmol/L BUN 26 H (7-17) mg/dL Creatinine 1.28 H (0.52-1.04) mg/dL Glucose (74-99) mg/dL Calcium 8.3 L (8.4-10.2) mg/dL Total Bilirubin (0.2-1.3) mg/dL Unconjugated Bilirubin (0.0-1.1) mg/dL Delta Bilirubin (0.0-0.2) mg/dL AST (14-36) U/L Troponin I (0.000-0.034) ng/mL Total Protein (6.3-8.2) g/dL Albumin (3.5-5.0) g/dL 11/22/24 Range/Units 09:36 WBC (3.8-10.6) k/uL RBC (3.80-5.40) m/uL Hgb (11.4-16.0) gm/dL MCV (80.0-100.0) fL MCHC (31.0-37.0) g/dL Plt Count (150-450) k/uL Lymphocytes # (1.0-4.8) k/uL Macrocytosis APTT (22.0-30.0) sec D-Dimer (<0.60) mg/L FEU Chloride 110 H (98-107) mmol/L BUN 25 H (7-17) mg/dL Creatinine 1.24 H (0.52-1.04) mg/dL Glucose 102 H (74-99) mg/dL Calcium (8.4-10.2) mg/dL Total Bilirubin (0.2-1.3) mg/dL Unconjugated Bilirubin (0.0-1.1) mg/dL Delta Bilirubin (0.0-0.2) mg/dL AST (14-36) U/L Troponin I (0.000-0.034) ng/mL Total Protein (6.3-8.2) g/dL Albumin (3.5-5.0) g/dL
[2024-11-22 15:09] LABS: Chol/HDL Ratio 1.77 Ratio; LDL Cholesterol,Calculated 26.8 mg/dL (0.0-131.0); VLDL Calculation 10.16 mg/dL (5.00-40.00)
[2024-11-23] MEDS: ASPIRIN 325 MG TAB PO ONE (05:33)
[2024-11-23] MEDS: ATORVASTATIN 80 MG TAB PO ONE (05:34)
[2024-11-23 06:17] LABS: Glucose,Whole Blood 101 mg/dL (70-110)
[2024-11-23] MEDS ORDERED: HEPARIN SODIUM,PORCINE 10,000 UNIT in SODIUM CHLORIDE 0.9% 1,000 ML IRRIGATION PRN (07:00)
[2024-11-23] MEDS ORDERED: HEPARIN SODIUM,PORCINE (1 ML) 2,500 UNIT in SODIUM CHLORIDE 0.9% 250 ML IRRIGATION PRN (07:00)
[2024-11-23 08:19] LABS: African American GFR (CKD) 40 (>60 ml/min/1.73 sqM); Anion Gap 4 mmol/L; Blood Urea Nitrogen 23 mg/dL (7-17); Calcium 8.1 mg/dL (8.4-10.2); Carbon Dioxide 25 mmol/L (22-30); Chloride 111 mmol/L (98-107); Glucose 94 mg/dL (74-99); Non-African American GFR(CKD) 35 (>60 ml/min/1.73 sqM); Potassium 3.7 mmol/L (3.5-5.1); Sodium 140 mmol/L (137-145)
[2024-11-23] MEDS: IV FLUID CONTINUATION 1,000 ML IV ONE (08:34)
[2024-11-23] MEDS: HEPARIN SODIUM,PORCINE (1 ML) 2,500 UNIT in SODIUM CHLORIDE 0.9% 250 ML IRRIGATION PRN (08:40)
[2024-11-23] MEDS: HEPARIN SODIUM,PORCINE 10,000 UNIT in SODIUM CHLORIDE 0.9% 1,000 ML IRRIGATION PRN (08:40)
[2024-11-23] MEDS: fentaNYL (PF) 50 MCG/ML 2 ML AMP IVP ONE (08:54)
[2024-11-23] MEDS: MIDAZOLAM 2 MG/2 ML VIAL IVP ONE (08:54)
[2024-11-23] MEDS: LIDOCAINE 1% INJ 10MG/ML (20 ML MDV) SQ ONE (08:57)
[2024-11-23] MEDS: VERAPAMIL SYRINGE (5 MG/10 ML) INTRAARTER ONE (08:58)
[2024-11-23] MEDS: HEPARIN SODIUM 1,000 UN/ML (10ML VL) IVP ONE (09:00)
[2024-11-23] MEDS: IOPAMIDOL-370 100ML BTL INJ ONE (09:06)
--- NOTE | 2024-11-23 10:24 | CA ---
Transthoracic Echo Report Name: Rufina Madrid Age: 84 Gender: F : 1940 Exam Date: 11/22/2024 13:46 Exam Location: [facility] Ht (in): 65 Wt (lb): 230 Ordering Physician: Alize Lo Attending/Referring Phys: [id number], Teresita Clinical Support Tech Malissa Tobin RDCS Procedure CPT: Indications: LVF, RV strain Cardiac Hx: Technical Quality: Technically difficult study Contrast 1: Definity Total Dose (mL): 3 Contrast 2: Total Dose (mL): MEASUREMENTS (Male / Female) Normal Values 2D ECHO LV Diastolic Diameter PLAX 5.3 cm 4.2 - 5.9 / 3.9 - 5.3 cm LV Systolic Diameter PLAX 3.3 cm IVS Diastolic Thickness 1.1 cm 0.6 - 1.0 / 0.6 - 0.9 cm LVPW Diastolic Thickness 1.1 cm 0.6 - 1.0 / 0.6 - 0.9 cm LV Relative Wall Thickness 0.4 LVOT Diameter 2.3 cm LV Diastolic Volume MOD BP 119.0 cm??? 67 - 155 / 56 - 104 cm??? LV Systolic Volume MOD BP 55.7 cm??? 22 - 58 / 19 - 49 cm??? LV Ejection Fraction MOD BP 53.2 % >= 55 % LV Cardiac Index MOD BP 1641.5 cm???/min???m??? LV Diastolic Volume MOD 4C 120.7 cm??? LV Systolic Volume MOD 4C 63.6 cm??? LV Ejection Fraction MOD 4C 47.3 % LV Cardiac Index MOD 4C 1480.9 cm???/min???m??? LV Diastolic Length 4C 7.7 cm LV Systolic Length 4C 6.0 cm LV Diastolic Volume MOD 2C 110.1 cm??? LV Systolic Volume MOD 2C 45.3 cm??? LV Ejection Fraction MOD 2C 58.9 % LV Cardiac Index MOD 2C 1681.4 cm???/min???m??? LV Diastolic Length 2C 8.2 cm LV Systolic Length 2C 5.5 cm LA Volume 120.5 cm??? 18 - 58 / 22 - 52 cm??? LA Volume Index 53.9 cm???/m??? 16 - 28 cm???/m??? DOPPLER AV Peak Velocity 160.9 cm/s AV Peak Gradient 10.4 mmHg AV Mean Velocity 95.4 cm/s AV Mean Gradient 4.5 mmHg AV Velocity Time Integral 36.0 cm LVOT Peak Velocity 108.7 cm/s LVOT Peak Gradient 4.7 mmHg LVOT Velocity Time Integral 26.6 cm LVOT Stroke Volume 115.3 cm??? LVOT Stroke Volume Index 54.9 ml/m??? LVOT Cardiac Index 2989.1 cm???/min???m??? AV Area Cont Eq vti 3.2 cm??? AV Area Cont Eq pk 2.9 cm??? MV Area PHT 1.5 cm??? Mitral E Point Velocity 65.3 cm/s Mitral A Point Velocity 40.4 cm/s Mitral E to A Ratio 1.6 MV Deceleration Time 493.1 ms TR Peak Velocity 283.1 cm/s TR Peak Gradient 32.1 mmHg Right Atrial Pressure 5.0 mmHg Pulmonary Artery Systolic Pressu 37.1 mmHg Right Ventricular Systolic Press 37.1 mmHg PV Peak Velocity 90.7 cm/s PV Peak Gradient 3.3 mmHg FINDINGS Left Ventricle Left ventricular ejection fraction is estimated at 55 %. Mildly increased septal wall thickness. Mildly increased posterior wall thickness. Moderately increased left ventricular diastolic volume. Mildly increased left ventricular systolic volume. No obvious regional wall motion abnormalities. Right Ventricle Mild right ventricular dilatation. Normal right ventricular global systolic function. Mild pulmonary hypertension. Right Atrium Severe right atrial dilatation. Left Atrium Severely increased left atrial volume. Mildly increased left atrial area. Mitral Valve Mitral valve thickened. No evidence for mitral valve prolapse. No mitral stenosis. Mild mitral regurgitation. Aortic Valve Trileaflet aortic valve. No aortic stenosis. Mild aortic regurgitation. Tricuspid Valve Structurally normal tricuspid valve. No tricuspid stenosis. Mild tricuspid regurgitation. Pulmonic Valve Pulmonic valve not well visualized. No pulmonic stenosis. Trace pulmonic regurgitation. Pericardium No pericardial effusion. Aorta Normal size aortic root and proximal ascending aorta. CONCLUSIONS Normal LV size and systolic function with mild to moderate concentric LVH. Enlarged atria. Mild mitral and tricuspid insufficiency with mildly elevated PA pressures. No pericardial effusion Previewed by: Dr. Kaycee Galvan MD (Electronically Signed) Final Date: 23 November 2024 10:23
[2024-11-23 11:49] LABS: Glucose,Whole Blood 178 mg/dL (70-110)
--- NOTE | 2024-11-23 14:28 | P.PN ---
Subjective Progress Note Date: 11/23/24 84-year-old female, history of hypertension, hyperlipidemia, hypothyroidism, diabetes mellitus, with an episode of chest discomfort which began approximately 1 hour prior to arrival. Patient describes it as a pain pressure across her chest. No associated vomiting. No diaphoresis. No prior history of CAD. Patient states the pain is completely resolved at this time. Denies dyspnea. Denies fever. Blood work completed in ED reveals a WBC of 3.5, hemoglobin of 11.4 and platelet count of 92, sodium 144, potassium 3.6, BUNs/creatinine of 23/1.31 and blood glucose of 71, D-dimer of 5.48, total bilirubin of 2.5 with AST of 58 EKG reveals sinus rhythm with rate of 86, [place] interval 157, QRS duration 117, QTc 439, no acute ST or T wave changes Chest x-ray reveals left lower lobe infiltrate Patient has been placed on IV heparin and is being admitted for further cardiology evaluation 11/22 This is a pleasant 84 years old female who presents because of chest pain, found to have non-STEMI and placed on heparin drip and aspirin 325 mg as well as other cardiac medication This morning she is awake alert and looks comfortable, no chest pain no dyspnea no other GI symptoms. Patient could walk to the bathroom by herself. Patient states that she has chronic soft stool and she has chronic shortness of breath that is been going on for years for both of the symptoms. Patient also is a known case of right breast cancer that she follow-up with Dr. Aranda and she planned to undergo right breast lumpectomy today with Dr. Somers which is obviously it is held Patient remains on heparin drip, aspirin 325 mg. D-dimer elevated at 5.4, ultrasound of the leg is negative for DVT. Creatinine is elevated at 1.3 which is baseline and VQ scan is requested and is pending Echocardiogram is pending as well as well ultrasound of the liver for mildly elevated liver enzymes 11/23. Patient seen and examined. Blood work from this morning showed sodium 140, potassium 3.7, BUN 23, creatinine 1.41 currently n.p.o., going for cardiac cath today. Denies any chest pain. Denies shortness of breath REVIEW OF SYSTEMS: CONSTITUTIONAL: No fever, no malaise,. CARDIOVASCULAR: No chest pain, no palpitations, no syncope. PULMONARY: No shortness of breath, no cough, GASTROINTESTINAL: No diarrhea, no nausea, no vomiting, no abdominal pain. NEUROLOGICAL: No headaches, no weakness, PHYSICAL EXAMINATION: GENERAL: The patient is alert and oriented x3, not in any acute distress. Well developed, well nourished. HEENT: Pupils are round and equally reacting to light. EOMI. No scleral icterus. No conjunctival pallor. Normocephalic, atraumatic. No pharyngeal erythema. No thyromegaly. CARDIOVASCULAR: S1 and S2 present. No murmurs, rubs, or gallops. PULMONARY: Chest is clear to auscultation, no wheezing or crackles. ABDOMEN: Soft, nontender, nondistended, normoactive bowel sounds. No palpable organomegaly. MUSCULOSKELETAL: No joint swelling or deformity. EXTREMITIES: No cyanosis, clubbing, or pedal edema. NEUROLOGICAL: Gross neurological examination did not reveal any focal deficits. SKIN: No rashes. Assessment and plan NSTEMI Acute kidney injury Hypothyroidism Hypertension is hyperlipidemia Diabetes mellitus Normal coronary arteries, per cardiac catheterization 2022 History of right breast cancer Monitor vital signs Monitor CBC Monitor CMP Continue telemetry monitoring Follow-up on 2D echo Continue pharmacy to dose heparin Continue aspirin, Lipitor, Lasix, Imdur, lisinopril Currently n.p.o. scheduled for cardiac cath today Labs and medication were reviewed.. Continue same treatment. Continue with symptomatic treatment. Resume home medication. Monitor labs and vitals. DVT and GI prophylaxis. Further recommendations as per clinical course of the patient Dictation was produced using [employer] dictation software. please excuse any grammatical, word or spelling errors. Objective - Vital Signs Vital signs: Vital Signs Temp 97.8 F 11/23/24 07:54 Pulse 52 L 11/23/24 07:54 Resp 16 11/23/24 07:54 BP 115/57 11/23/24 07:54 Pulse Ox 97 11/23/24 07:54 FiO2 Intake & Output 11/22/24 11/23/24 11/23/24 18:59 06:59 18:59 Intake Total 172.899 100 350 Balance 172.899 100 350 Weight 106.8 kg Intake: IV 350 Intake, IV Titration 172.899 100 Amount Heparin Sod,Pork in 0.45% 172.899 NaCl 25,000 unit In 0.45 % NaCl 1 250ml.bag @ 9. 585 UNITS/KG/HR 10 mls/hr IV .Q24H DORIE Rx#: [id number] Sodium Chloride 0.9% 1, 100 000 ml In Empty Bag 1 bag @ 1 ML/KG/HR 104.326 mls /hr IV .[id number] DORIE Rx#: [id number] Other: Voiding Method Toilet # Voids 2 - Labs CBC & Chem 7: 11/22/24 07:46 11/23/24 06:43 Labs: Abnormal Lab Results - Last 24 Hours (Table) 11/22/24 11/23/24 11/23/24 Range/Units 09:36 06:43 06:43 APTT 43.1 H (22.0-30.0) sec Chloride 110 H 111 H (98-107) mmol/L BUN 25 H 23 H (7-17) mg/dL Creatinine 1.24 H 1.41 H (0.52-1.04) mg/dL Glucose 102 H (74-99) mg/dL Calcium 8.1 L (8.4-10.2) mg/dL
--- NOTE | 2024-11-23 15:51 | P.CARDCATH ---
Description of Procedure: PROCEDURES PERFORMED: Left heart catheterization, bilateral coronary angiography, ultrasound guided arterial access INDICATION: NSTEMI CONSENT:I have discussed the risks, benefits and alternative therapies for the above-mentioned procedure and for both sedation/analgesia as well as necessary blood product administration, if indicated, as they pertain to this patient. The patient has indicated understanding and acceptance of the risks and procedures discussed. PROCEDURE: After the risks, benefits and alternatives of the above mentioned procedure explained in detail with the patient, informed consent was obtained. Patient was taken to the catheterization lab and prepped and draped in usual fashion. Ultrasound guidance was used to assess for arterial access. 1% lidocaine was used to anesthetize the right radial artery. A 6-Belizean sheath was placed in the right radial artery using modified Seldinger technique and ultrasound guidance. Left coronary angiography was performed with a 5-Belizean JL 3.5 catheter and right coronary angiography was performed with a 6-Belizean AL1 catheter in various views. A 6-Belizean AL1 catheter was inserted into the left ventricle and pressure measurements were obtained. The right radial sheath was removed and a TR band was placed with hemostasis achieved. The patient tolerated the procedure well. Patient was transported back to the post catheterization holding area in stable condition. Conscious Sedation: Patient was monitored under the direct supervision of myself for conscious sedation using Versed and fentanyl for a total duration of 9 minutes HEMODYNAMICS: Ao: 132/81 LV: 129/7, LVEDP 13 SELECTIVE CORONARY ARTERIOGRAPHY: LEFT MAIN: The left main is a large caliber vessel which bifurcates into the LAD and circumflex. There is no significant stenosis. LEFT ANTERIOR DESCENDING CORONARY ARTERY: LAD is a large caliber vessel which wraps around to the apex. There are mild luminal irregularities with mid LAD 10-20% stenosis. LEFT CIRCUMFLEX CORONARY ARTERY: Left circumflex is a moderate caliber vessel with mild luminal irregulaities. RIGHT CORONARY ARTERY: The right coronary artery is a large caliber vessel which gives off a PDA and PLV branch and is the dominant vessel. There is an ostial 20% stenosis and otherwise mild luminal irregularities. FINAL IMPRESSION: 1. Mild CAD as described above including 10-20% mid LAD and 20% ostial RCA stenosis 2. Normal left sided filling pressures PLAN: 1. Aggressive risk factor modification per most recent ACC/AHA guidelines. 2. Follow-up in the office in 1-2 weeks.
[2024-11-23 16:48] LABS: Glucose,Whole Blood 114 mg/dL (70-110)
[2024-11-23 20:09] LABS: Glucose,Whole Blood 115 mg/dL (70-110)
[2024-11-24 06:10] LABS: Glucose,Whole Blood 99 mg/dL (70-110)
[2024-11-24 06:21] LABS: African American GFR (CKD) 46 (>60 ml/min/1.73 sqM); Anion Gap 5 mmol/L; Blood Urea Nitrogen 21 mg/dL (7-17); Calcium 8.1 mg/dL (8.4-10.2); Carbon Dioxide 22 mmol/L (22-30); Chloride 111 mmol/L (98-107); Glucose 89 mg/dL (74-99); Non-African American GFR(CKD) 39 (>60 ml/min/1.73 sqM); Potassium 3.9 mmol/L (3.5-5.1); Sodium 138 mmol/L (137-145)
[2024-11-24 07:54] VITALS: TEMP 97.7
[2024-11-24 11:22] VITALS: BP 118/61; PULSE 55; RESP 16
--- NOTE | 2024-11-24 12:35 | P.DS ---
Providers Date of admission: 11/21/24 08:43 Expected date of discharge: 11/24/24 Attending physician: Sridevi Kinney Consults: 11/21/24 08:42 Consult Physician Urgent Consulting Provider: Sung Moser Consult Reason/Comments: chest pain Do you want consulting provider notified?: Yes Primary care physician: [facility] Course: Discharge diagnoses; NSTEMI Acute kidney injury Hypothyroidism Hypertension is hyperlipidemia Diabetes mellitus Normal coronary arteries, per cardiac catheterization 2022 History of right breast cancer Hospital course; 84-year-old female, history of hypertension, hyperlipidemia, hypothyroidism, diabetes mellitus, with an episode of chest discomfort which began approximately 1 hour prior to arrival. Patient describes it as a pain pressure across her chest. No associated vomiting. No diaphoresis. No prior history of CAD. Patient states the pain is completely resolved at this time. Denies dyspnea. Denies fever. Blood work completed in ED reveals a WBC of 3.5, hemoglobin of 11.4 and platelet count of 92, sodium 144, potassium 3.6, BUNs/creatinine of 23/1.31 and blood glucose of 71, D-dimer of 5.48, total bilirubin of 2.5 with AST of 58 EKG reveals sinus rhythm with rate of 86, [place] interval 157, QRS duration 117, QTc 439, no acute ST or T wave changes Chest x-ray reveals left lower lobe infiltrate Patient has been placed on IV heparin and is being admitted for further cardiology evaluation 11/22 This is a pleasant 84 years old female who presents because of chest pain, found to have non-STEMI and placed on heparin drip and aspirin 325 mg as well as other cardiac medication This morning she is awake alert and looks comfortable, no chest pain no dyspnea no other GI symptoms. Patient could walk to the bathroom by herself. Patient states that she has chronic soft stool and she has chronic shortness of breath that is been going on for years for both of the symptoms. Patient also is a known case of right breast cancer that she follow-up with Dr. Aranda and she planned to undergo right breast lumpectomy today with Dr. Somers which is obviously it is held Patient remains on heparin drip, aspirin 325 mg. D-dimer elevated at 5.4, ultrasound of the leg is negative for DVT. Creatinine is elevated at 1.3 which is baseline and VQ scan is requested and is pending Echocardiogram is pending as well as well ultrasound of the liver for mildly elevated liver enzymes 11/23. Patient seen and examined. Blood work from this morning showed sodium 140, potassium 3.7, BUN 23, creatinine 1.41 currently n.p.o., going for cardiac cath today. Denies any chest pain. Denies shortness of breath 11/24. Patient seen and examined. Patient cardiac cath done that showed Mild CAD including 10-20% mid LAD and 20% ostial RCA stenosis Normal left sided filling pressures. Cardiology recommended aggressive risk factor modification PHYSICAL EXAMINATION: GENERAL: The patient is alert and oriented x3, not in any acute distress. Well developed, well nourished. HEENT: Pupils are round and equally reacting to light. EOMI. No scleral icterus. No conjunctival pallor. Normocephalic, atraumatic. No pharyngeal erythema. No thyromegaly. CARDIOVASCULAR: S1 and S2 present. No murmurs, rubs, or gallops. PULMONARY: Chest is clear to auscultation, no wheezing or crackles. ABDOMEN: Soft, nontender, nondistended, normoactive bowel sounds. No palpable organomegaly. MUSCULOSKELETAL: No joint swelling or deformity. EXTREMITIES: No cyanosis, clubbing, or pedal edema. NEUROLOGICAL: Gross neurological examination did not reveal any focal deficits. SKIN: No rashes. Dictation was produced using [employer] dictation software. please excuse any grammatical, word or spelling errors. Patient Condition at Discharge: Fair Plan - Discharge Summary Discharge Rx Participant: Yes New Discharge Prescriptions: New Aspirin 81 mg PO DAILY #30 tab Isosorbide Mononitrate ER [Imdur] 30 mg PO DAILY 30 Days #30 tab Metoprolol Tartrate [Lopressor] 12.5 mg PO BID 30 Days #60 tab Nitroglycerin Sl Tabs [Nitrostat] 0.4 mg SUBLINGUAL Q5M PRN #30 tab PRN Reason: Chest Pain Continue Levothyroxine Sodium [Synthroid] 125 mcg PO DAILY Furosemide [Lasix] 20 mg PO DAILY Atorvastatin [Lipitor] 40 mg PO HS metFORMIN HCL 500 mg PO BID lisinopriL 2.5 mg PO DAILY Ergocalciferol [Vitamin D2 (1250 Mcg = 88742 Iu)] 1,250 mcg PO Q14D Discharge Medication List Atorvastatin [Lipitor] 40 mg PO HS 09/17/22 [History] Ergocalciferol [Vitamin D2 (1250 Mcg = 81977 Iu)] 1,250 mcg PO Q14D 09/17/22 [History] Furosemide [Lasix] 20 mg PO DAILY 09/17/22 [History] Levothyroxine Sodium [Synthroid] 125 mcg PO DAILY 09/17/22 [History] lisinopriL 2.5 mg PO DAILY 09/17/22 [History] metFORMIN HCL 500 mg PO BID 09/17/22 [History] Aspirin 81 mg PO DAILY #30 tab 11/24/24 [Rx] Isosorbide Mononitrate ER [Imdur] 30 mg PO DAILY 30 Days #30 tab 11/24/24 [Rx] Metoprolol Tartrate [Lopressor] 12.5 mg PO BID 30 Days #60 tab 11/24/24 [Rx] Nitroglycerin Sl Tabs [Nitrostat] 0.4 mg SUBLINGUAL Q5M PRN #30 tab 11/24/24 [Rx] Follow up Appointment(s)/Referral(s): Isaac Benitez MD [Primary Care Provider] - 1-2 days Sung Moser DO [STAFF PHYSICIAN] - 1 Week Discharge Disposition: HOME SELF-CARE
--- NOTE | 2024-11-24 13:17 | P.PN ---
Subjective HISTORY OF PRESENT ILLNESS: This is an 84-year-old female who follows in the office with Dr. Moser. Patient is admitted to the hospital secondary to non-STEMI. Patient examined this morning in the emergency room. Patient currently denies chest pain or pressure. She denies shortness of breath. Patient with elevated D-dimer of 5.48. CTA negative for pulmonary embolism. Vital signs are stable. 11/24/2024 Patient underwent cardiac catheterization yesterday with Dr. Moser revealing mild CAD including 10 to 20% mid LAD and 20% ostial RCA stenosis. Normal left- sided filling pressures. Patient examined this morning at bedside. Patient currently denies chest pain or pressure. She denies shortness of breath. Vital signs are stable. She is hoping to be discharged home today. PHYSICAL EXAM: VITAL SIGNS: Reviewed. GENERAL: Well-developed in no acute distress. NECK: Supple. No JVD or thyromegaly LUNGS: Respirations even and unlabored. Lungs essentially clear to auscultation bilaterally. HEART: Regular rate and rhythm. S1 and S2 heard. EXTREMITIES: Normal range of motion. No clubbing or cyanosis. Peripheral pulses intact. No lower extremity edema ASSESSMENT: Non-STEMI, status post cardiac catheterization revealing mild CAD including 10 to 20% mid LAD and 20% ostial RCA stenosis Recent diagnosis of breast cancer Hypertension Hyperlipidemia Diabetes PLAN: Continue current cardiac medications Patient is stable for discharge home today from a cardiac standpoint Patient to follow-up postdischarge in the office with Dr. Moser Nurse practitioner note has been reviewed by physician. Signing provider agrees with the documented findings, assessment, and plan of care documented by CREDIT CARD INTERVIEWER as a scribe. Objective - Vital Signs Vital signs: Vital Signs Temp 97.7 F 11/24/24 07:52 Pulse 55 L 11/24/24 11:22 Resp 16 11/24/24 11:22 BP 118/61 11/24/24 11:22 Pulse Ox 97 11/24/24 11:22 FiO2 Intake & Output 11/23/24 11/24/24 11/24/24 18:59 06:59 18:59 Intake Total 468 660 Balance 468 660 Weight 108 kg Intake: IV 350 Oral 118 660 Other: Voiding Method Toilet Toilet Toilet # Voids 1 1 1 - Labs CBC & Chem 7: 11/22/24 07:46 11/24/24 05:47 Labs: Abnormal Lab Results - Last 24 Hours (Table) 11/23/24 11/23/24 11/24/24 Range/Units 16:46 20:08 05:47 Chloride 111 H (98-107) mmol/L BUN 21 H (7-17) mg/dL Creatinine 1.26 H (0.52-1.04) mg/dL POC Glucose (mg/dL) 114 H 115 H (70-110) mg/dL Calcium 8.1 L (8.4-10.2) mg/dL
[2024-11-25] MEDS ORDERED: METOPROLOL TARTRATE 12.5 MG TAB PO SCH (09:00)
--- NOTE | 2024-12-15 08:08 | CDI ---
Documentation Clarification Form Date: 12/15/24 From: Veda Matthew Admit Date: 11/21/2024 08:43:00 AM Patient Name: Rufina Madrid Visit Number: [id number] Discharge Date: 11/24/2024 11:44:00 AM ATTENTION: The Clinical Documentation Specialists (CDI) and [facility] Coding Staff appreciate your assistance in clarifying documentation. Please respond to the clarification below the line at the bottom and electronically sign. The CDI & [facility] Coding staff will review the response and follow-up if needed. Please note: Queries are made part of the Legal Health Record. If you have any questions, please contact the author of this message via ITS. Doctor/Provider: Spencer Benavidez, MAGGIE is documented H&P and PN 11/22 pn which may lack sufficient clinical evidence/support in the medical record. Additional clarification is requested. Patient history/risk factors: NSTEMI, CAD, HTN, HLD, T2DM Clinical Indicators: BUNs/creatinineelevatedat 30/09. BUN: 23 (11/21), 26, 25 (11/22), 23 (11/23), 21 (11/24) CR: 1.31 (11/21), 1.28, 1.24 (11/22), 1.41 (11/23), 1.26 (11/24) GFR: 38 (), 39, 40 (11/22), 35 (11/23), 39 (11/24) Treatment: Maintain on slow IV fluid hydration; monitor strict NICHOLAS's, daily weights, renal function electrolytes;avoidnephrotoxins andhypotension. After work up and study, please which diagnosis is most appropriate? [ ] Acute Kidney Injury ruled out [ ] Acute Kidney Injury is a valid diagnosis as evidenced by the following: [ x ] Chronic Kidney Disease specify Stage 3b [ ] Acute renal insufficiency [ ] Unable to determine [ ] Other, please specify Reference: [facility]IE Criteria An increase in serum creatinine by greater than or equal to 0.3 mg/dL within 48 hours; An increase in serum creatinine by greater than or equal to 1.5 times baseline, which is known or presumed to have occurred within the prior 7 days; A urine volume less than 0.5 ml/kg/h for 6 hours. When the baseline is unknown the lowest creatinine during admission assumed to be baseline MTDD
--- NOTE | 2024-12-15 08:25 | CDI ---
Documentation Clarification Form Date: 12/15/24 From: Veda Matthew Admit Date: 11/21/2024 08:43:00 AM Patient Name: Rufina Madrid Visit Number: [id number] Discharge Date: 11/24/2024 11:44:00 AM ATTENTION: The Clinical Documentation Specialists (CDI) and [facility] Coding Staff appreciate your assistance in clarifying documentation. Please respond to the clarification below the line at the bottom and electronically sign. The CDI & [facility] Coding staff will review the response and follow-up if needed. Please note: Queries are made part of the Legal Health Record. If you have any questions, please contact the author of this message via ITS. Doctor/Provider: Ravi Fu, Your patient has the documented diagnosis of unspecified congestive heart failure in the H&P & PN on 11/[address] Garcia. Additional information regarding the type, acuity of CHF is requested. History/Risk Factors: NSTEMI, CAD, HTN, HLD, T2DM, Clinical Indicators: Patient has hypertension and take Lasix 20 mg daily. Echo ordered. VS/Pulse OX: T- 97.7, P-89, R-16, BP- 25/58, O2 Sat-97 BNP: None Echocardiogram Results: Left ventricular ejection fraction is estimated at 55 %. Mildly increased septal wall thickness. Mildly increased posterior wall thickness. Moderately increased left ventricular diastolic volume. Mildly increased left ventricular systolic volume. Chest X Ray: No cardiomegaly. Treatment: Lasix 20 mg PO daily, aspirin, statins and Imdur 20 mg PO daily In your professional opinion, can you please clarify the acuity and type of CHF if known? [ ] Chronic Systolic Heart Failure (reduced EF) [ ] Chronic Diastolic Heart Failure (preserved EF) [ ] Chronic Systolic & Diastolic Heart Failure [ ] Other, please specify [ ] Unable to determine MTDD
--- NOTE | 2024-12-15 09:14 | CDI ---
Documentation Clarification Form Date: 12/15/24 From: Veda Matthew Admit Date: 11/21/2024 08:43:00 AM Patient Name: Rufina Madrid Visit Number: [id number] Discharge Date: 11/24/2024 11:44:00 AM ATTENTION: The Clinical Documentation Specialists (CDI) and [facility] Coding Staff appreciate your assistance in clarifying documentation. Please respond to the clarification below the line at the bottom and electronically sign. The CDI & [facility] Coding staff will review the response and follow-up if needed. Please note: Queries are made part of the Legal Health Record. If you have any questions, please contact the author of this message via ITS. Doctor/Provider: Spencer Benavidez, Your patient has elevated liver enzymes per H&P. Based on this information and the findings below, is there an additional diagnosis that is clinically appropriate for this patient? Patient history/risk factors: NSTEMI, CAD, HTN, HLD, T2DM Clinical Indicators: AST 58, 56 (11/21) CT Scan: Hepatic cirrhosis with evidence of portal hypertension with small ascites upper abdominal varicosities and splenomegaly. Treatment: RUQ US, CT Scan and monitor liver enzymes Is there an additional diagnosis that is clinically appropriate for this patient? [ ] Hepatic Cirrhosis with Portal Hypertension an small Ascites [ ] No additional diagnosis/Not clinically significant [ x ] Unable to determine [ ] Other, please specify MTDD
--- NOTE | 2024-12-27 06:55 | CDI ---
Documentation Clarification Form Date: 12/27/24 From: Veda Matthew Admit Date: 11/21/24 8:43:00 AM Patient Name: Rufina Madrid Visit Number: [id number] Discharge Date: 11/24/2024 11:44:00 AM ATTENTION: The Clinical Documentation Specialists (CDI) and [facility] Coding Staff appreciate your assistance in clarifying documentation. Please respond to the clarification below the line at the bottom and electronically sign. The CDI & [facility] Coding staff will review the response and follow-up if needed. Please note: Queries are made part of the Legal Health Record. If you have any questions, please contact the author of this message via ITS. Doctor/Provider: Sung Moser, Your patient has the documented diagnosis of unspecified congestive heart failure in the H&P & PN on 11/[address] Garcia. Additional information regarding the type, acuity of CHF is requested. History/Risk Factors: NSTEMI, CAD, HTN, HLD, T2DM, Clinical Indicators: Patient has hypertension and take Lasix 20 mg daily. Echo ordered. VS/Pulse OX: T- 97.7, P-89, R-16, BP- 25/58, O2 Sat-97 BNP: None Echocardiogram Results: Left ventricular ejection fraction is estimated at 55 %. Mildly increased septal wall thickness. Mildly increased posterior wall thickness. Moderately increased left ventricular diastolic volume. Mildly increased left ventricular systolic volume. Chest X Ray: No cardiomegaly. Treatment: Lasix 20 mg PO daily, aspirin, statins and Imdur 20 mg PO daily In your professional opinion, can you please clarify the acuity and type of CHF if known? [ ] Chronic Systolic Heart Failure (reduced EF) [ ] Chronic Diastolic Heart Failure (preserved EF) [ ] Chronic Systolic & Diastolic Heart Failure [ X ] Other, please specify____There is no documentation of congestive heart failure in the cardiology consult or progress note. I did not see the patient on a clinical basis and this query should go to Dr Galvan or Dr Fu who did consult and progress note. The patient presented with chest pain and there is no documentation of CHF in our note. This query should go to whoever documented CHF. Please do not query me like this again or else we will need to reexamine query practices with administration. [ ] Unable to determine MTDD
--- NOTE | 2025-01-05 05:49 | CDI ---
Documentation Clarification Form Date: 01/04/25 From: Veda Matthew Admit Date: 11/21/2024 08:43:00 AM Patient Name: Rufina Madrid Visit Number: [id number] Discharge Date: 11/24/2024 11:44:00 AM ATTENTION: The Clinical Documentation Specialists (CDI) and [facility] Coding Staff appreciate your assistance in clarifying documentation.Please respond to the clarification below the line at the bottom and electronically sign.The CDI [facility] Coding staff will review the response and follow-up if needed.Please note: Queries are made part of the Legal Health Record.If you have any questions, please contact the author of this message via ITS. Doctor/Provider: Spencer Benavidez, Your patient has the documented diagnosis of unspecified congestive heart failure in the H P PN on 11/[address] Garcia.Additional information regarding the type, acuity of CHF is requested. History/Risk Factors: NSTEMI, CAD, HTN, HLD, T2DM, Clinical Indicators: Patient has hypertension and take Lasix 20 mg daily.Echo ordered. VS/Pulse OX: T- 97.7, P-89, R-16, BP- 25/58, O2 Sat-97 BNP: None Echocardiogram Results: Left ventricular ejection fraction is estimated at 55 %. Mildly increased septal wall thickness.Mildly increased posterior wall thickness.Moderately increased left ventricular diastolic volume.Mildly increased left ventricular systolic volume. Chest X Ray: No cardiomegaly. Treatment: Lasix 20 mg PO daily, aspirin, statins and Imdur 20 mg PO daily In your professional opinion, can you please clarify the acuity and type of CHF if known? [ ] Chronic Systolic Heart Failure (reduced EF) [x ] Chronic Diastolic Heart Failure (preserved EF) [ ] Chronic Systolic Diastolic Heart Failure [ ] Other, please specify [ ] Unable to determine MTDD
== END 2024-11-24 11:44 | disposition home or self-care (01) | DRG 281 ==
LOC: EC 04:25 → 3SCARD 08:42 → OBSVTOIN 08:43 → 3SCARD 11-22 05:04
PROVIDERS: ADMIT Hospitalist; ATTEND Hospitalist
PROC: B2111ZZ Fluoroscopy of Multiple Coronary Arteries using Low Osmolar Contrast (ICD-10-PCS; principal; 2024-11-23 10:30)
PROC: 4A023N7 Measurement of Cardiac Sampling and Pressure, Left Heart, Percutaneous Approach (ICD-10-PCS; principal; 2024-11-23 10:30)
DX: I21.4 Non-ST elevation (NSTEMI) myocardial infarction (principal); I13.0 Hypertensive heart and chronic kidney disease with heart failure and stage 1 through stage 4 chronic kidney disease, or unspecified chronic kidney disease; D69.6 Thrombocytopenia, unspecified; C50.511 Malignant neoplasm of lower-outer quadrant of right female breast; E11.9 Type 2 diabetes mellitus without complications; E78.5 Hyperlipidemia, unspecified; D72.819 Decreased white blood cell count, unspecified; N18.32 Chronic kidney disease, stage 3b; E89.0 Postprocedural hypothyroidism; I50.32 Chronic diastolic (congestive) heart failure; I25.10 Atherosclerotic heart disease of native coronary artery without angina pectoris; Z79.890 Hormone replacement therapy; Z79.84 Long term (current) use of oral hypoglycemic drugs; Z79.899 Other long term (current) drug therapy; Z96.652 Presence of left artificial knee joint; Z88.6 Allergy status to analgesic agent; Z88.0 Allergy status to penicillin; Z88.5 Allergy status to narcotic agent
CPT/HCPCS: 36415; 71046; 71275; 76705; 80048; 80053; 80061; 80076; 83735; 84145; 84484; 85025; 85379; 85610; 85730; 86140; 87636; 93005; 93306; 93458; 93970; 96365; 96366; 99291

== ENCOUNTER 2024-12-13 06:17 | Day surgery (SDC) | payer MEDICARE ==
--- NOTE | 2024-12-10 09:49 | P.GSHP ---
History of Present Illness H&P Date: 12/13/24 Chief Complaint: Right breast cancer 84-year-old female coming on Friday for right breast lumpectomy with wire localization second lesion right breast. Patient was initially seen in August. Had a mammogram showing a mass in the right breast measuring 2.1 cm. A second lesion was seen in the lateral aspect of the breast. Initially it was thought that there were a total of 3 lesions however the 2 suspected lesions in the lateral aspect of the breast ended up being a single lesion. 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 Patient had an MRI which helped to define the 2 separate lesions altogether. She has been seen by oncology. Patient had some additional findings on the MRI outside of the breast that led to a PET scan being performed. PET scan showed an abnormality in a mesenteric lymph node. Spoke with oncology regarding that and they recommend proceeding with breast lumpectomy and they will monitor/workup the mesenteric node moving forward. Unfortunately patient was hospitalized the day before her planned lumpectomy last month with chest pain. She was seen by cardiology and was felt to have suffered a potential mild non-STEMI. Patient has been cleared by primary and cardiology for surgery at this time. Past Medical History Past Medical History: Coronary Artery Disease (CAD), Cancer, Chest Pain / Angina, Diabetes Mellitus, Hyperlipidemia, Osteoarthritis (OA), Skin Disorder, Thyroid Disorder Additional Past Medical History / Comment(s): SOB w/minimal exertion, frequent foot swelling, gallstone, ?blood clot behind knee back in the 90's, leg cramps; Aug 2024 dx right breast cancer, chronic loose bowels, bruises easy, "prediabetes", hospitalized 11/21/24 - 11/24/24 w/ chest pain, states she thinks she just had a panic attack History of Any Multi-Drug Resistant Organisms: None Reported Past Surgical History: Appendectomy, Joint Replacement, Orthopedic Surgery, Tonsillectomy Additional Past Surgical History / Comment(s): thyroidectomy, right wrist surg, cataracts removed, left knee replacement, colonoscopies Past Anesthesia/Blood Transfusion Reactions: No Reported Reaction Smoking Status: Never smoker - Past Family History Mother Family Medical History: COPD Additional Family Medical History / Comment(s): of emphysema. phlebitis after childbirth Father Family Medical History: Cancer Additional Family Medical History / Comment(s): lung Brother(s) Family Medical History: Cancer Additional Family Medical History / Comment(s): 1 brother prostate cancer. 1 brother of lung cancer Medications and Allergies Home Medications Medication Instructions Recorded Confirmed Type Atorvastatin [Lipitor] 40 mg PO HS 09/17/22 12/09/24 History Ergocalciferol [Vitamin D2 (1250 1,250 mcg PO Q14D 09/17/22 12/09/24 History Mcg = 17014 Iu)] Furosemide [Lasix] 40 mg PO DAILY 09/17/22 12/09/24 History Levothyroxine Sodium [Synthroid] 125 mcg PO DAILY 09/17/22 12/09/24 History lisinopriL 2.5 mg PO DAILY 09/17/22 12/09/24 History metFORMIN HCL 500 mg PO BID 09/17/22 12/09/24 History Aspirin 81 mg PO DAILY #30 tab 11/24/24 12/09/24 Rx Nitroglycerin Sl Tabs [Nitrostat] 0.4 mg SUBLINGUAL Q5M PRN #30 tab 11/24/24 12/09/24 Rx Acetaminophen Tab [Tylenol Tab] 1,000 mg PO Q6HR PRN 12/09/24 12/09/24 History Menthol [Oklee] 1 lozenge PO DIRECTED PRN 12/09/24 12/09/24 History Metoprolol Succinate (ER) [Toprol 12.5 mg PO DAILY 12/09/24 12/09/24 History Xl] Allergies Allergy/AdvReac Type Severity Reaction Status Date / Time aspirin Allergy Unknown Verified 12/09/24 10:03 Penicillins Allergy Rash/Hives Verified 12/09/24 10:03 codeine AdvReac Nausea & Verified 12/09/24 10:03 Vomiting Surgical - Exam Physical exam: General: Well-developed, well-nourished HEENT: Normocephalic, sclerae nonicteric Right breast: Palpable mass at 5:00 measuring 2 cm. Slight retraction of the overlying skin. Palpable lymph node present on exam. Left breast: Abdomen: Nontender, nondistended Extremities: No edema Neuro: Alert and oriented Assessment and Plan (1) Breast cancer, right Narrative/Plan: 84-year-old female with recently diagnosed stage Ib right breast cancer. Patient has a second lesion also biopsied showing papilloma. This has some suspicious features on MRI. Options reviewed in detail with the patient on multiple occasions. Will proceed with right breast lumpectomy with wire localization, wire localization biopsy of second area right breast. No plans for sentinel lymph node biopsy at this time given the patient's age and favorable pathology. Patient had a palpable node initially when seen. This was not seen on ultrasound, MRI, or PET scan. Risks of bleeding, infection, scarring, dimpling, numbness, poor healing, seroma, nerve injury, lymphedema, recurrence, possible need for further surgeries reviewed. Patient understands and wishes to proceed. Status: Acute Code(s): C50.911 - MALIGNANT NEOPLASM OF UNSP SITE OF RIGHT FEMALE BREAST SNOMED Code(s): 379641670
[2024-12-13] MEDS ORDERED: fentaNYL (PF) 50 MCG/ML 2 ML AMP IV PRN (07:00)
[2024-12-13] MEDS ORDERED: MIDAZOLAM 2 MG/2 ML VIAL IV PRN (07:00)
[2024-12-13] MEDS: IV FLUID CONTINUATION 1,000 ML IV ONE (07:04)
[2024-12-13 07:08] LABS: Glucose,Whole Blood 89 mg/dL (70-110)
[2024-12-13] MEDS: SODIUM BICARB 8.4% 50 ML SYR (1 MEQ/ML) MISCELLANE ONE (08:10)
[2024-12-13] MEDS: LIDOCAINE 1% INJ 10MG/ML (20 ML MDV) SQ ONE (08:10)
[2024-12-13] MEDS: ACETAMINOPHEN TAB 500 MG TAB PO PRN (09:02)
[2024-12-13] MEDS: LACTATED RINGERS 1,000 ML IV SCH (09:02)
[2024-12-13] MEDS: ONDANSETRON 4 MG/2 ML VIAL IVP ONE (09:05)
[2024-12-13] MEDS: DEXAMETHASONE SOD PHOSPHATE 4 MG/ML 1 ML VIAL IV ONE (09:05)
[2024-12-13] MEDS: HEPARIN SODIUM,PORCINE 5,000 UNIT/ML 1 ML VIAL SQ PRN (09:15)
[2024-12-13] MEDS ORDERED: LIDOCAINE 1% INJ 10MG/ML (20 ML MDV) ONE (09:30)
[2024-12-13] MEDS ORDERED: fentaNYL (PF) 50 MCG/ML 2 ML AMP ONE (09:30)
[2024-12-13] MEDS ORDERED: PROPOFOL 10 MG/ML 20 ML VIAL IV ONE (09:30)
[2024-12-13] MEDS ORDERED: MIDAZOLAM 2 MG/2 ML VIAL ONE (09:30)
[2024-12-13] MEDS: ceFAZolin 2 GM in DEXTROSE 5% IN WATER 50 ML IVPB PRN (09:30)
[2024-12-13] MEDS ORDERED: GLYCOPYRROLATE 0.2 MG/ML 2 ML VIAL ONE (09:30)
[2024-12-13] MEDS ORDERED: ePHEDrine 50 MG/ML 1 ML VIAL ONE (09:30)
[2024-12-13] MEDS: BUPIVACAINE (PF) 0.25% 30 ML VIAL SQ ONE (09:59)
--- NOTE | 2024-12-13 10:55 | P.NAPBC ---
NAPBC Queries - NAPBC Queries Was patient's case review presented at [facility] tumor board? If no, comment.: Yes Was patient's pathology reviewed at [facility]? If no, comment.: Yes Was breast conservation surgery offered? If no, comment.: Yes Was sentinel node biopsy offered? If no, comment.: Yes Was diagnosis confirmed by percutaneous core biopsy? If no, comment.: Yes Is patient mastectomy patient?: No Was a preop referral to reconstructive surgeon offered?: Yes Clinical Stage: 1b
--- NOTE | 2024-12-13 10:58 | P.OP ---
Date of Procedure: 12/13/24 Procedure(s) Performed: PREOPERATIVE DIAGNOSIS: Right breast cancer POSTOPERATIVE DIAGNOSIS: Same PROCEDURE: Right Breast wire localization lumpectomy with sentinel lymph node biopsy excisional biopsy SURGEON: Mindy EBL: 25 cc ANESTHESIA: General COMPLICATIONS: None OPERATIVE PROCEDURE: Patient was placed on the operating room table in the supine position. The patient was placed under general anesthesia. The breast was prepped and draped in usual sterile fashion. The first lumpectomy wire entrance site was then addressed. This was present at the 9:00 location. A curvilinear incision was made adjacent to the wire entrance site. I followed the wire down into the breast tissue. An adequate lumpectomy specimen then took place around the wire. Margins of 1.5-2 cm worth attempted to be achieved. The specimen was painted the appropriate 6 colors. Clips were used to demonstrate the lumpectomy site. The wire was confirmed to be excised with the specimen. The subcutaneous layers were closed using 3-0 Vicryl sutures. Skin was closed using a 4-0 Monocryl stitch. Next to the known cancer site at the 5:00 location was addressed. An elliptical incision was made encompassing the wire which was entering the breast from lateral to medial and the overlying skin. The palpable mass was fully excised along with the complete wire. Margins were clear grossly and by palpation. The specimen was then painted the appropriate 6 colors. Clips were used to identify the lumpectomy cavity. The clip was confirmed to be within the lumpectomy specimen by radiology. The subcutaneous tissues were closed using 3-0 Vicryl sutures. The skin was closed using a running 4-0 Monocryl stitch. Skin glue and sterile dressings were then applied. DISPOSITION: Stable to recovery room
[2024-12-13 11:05] LABS: Glucose,Whole Blood 111 mg/dL (70-110)
[2024-12-13 11:51] VITALS: TEMP 98
[2024-12-13 12:30] VITALS: BP 111/61; PULSE 53; RESP 16
--- NOTE | 2024-12-21 10:23 | MM ---
Reason for Exam: Post Procedure Mammogram. Last screening mammogram was performed 5 month(s) ago. Patient History: Menarche at age 13. Patient has no children. Breast cancer, right, age 84. 08/23/2024, US biopsy breast add'l VAD RT on the Right side. 08/23/2024, Malignant US biopsy breast VAD RT on the right side. 10/04/2024, US discontinued breast bx RT on the right side. Maternal cousin had breast cancer at or over age 50. Prior Study Comparison: 03/01/2018 Bilateral Screening Mammogram, [facility]. 07/28/2024 Bilateral MG 3D screening mammo w/cad, [facility]. 08/23/2024 Right MG diagnostic mammo RT wo CAD, [facility]. Tissue Density: Right: There are scattered areas of fibroglandular density. Findings: Right Breast 10:00 Needle LOC - 7 Kopan. Pathology Description: Location: 5 o'clock. Needle Type: 7 cm Kopan The procedure of needle localization with wire placement and than surgical excision was explained to the patient. Benefits, alternatives, and risks were discussed. An informed consent was then obtained. SITE A: 5:00 IDC: The shortest pathway for procedure was chosen. Shortest pathway was a lateral approach. The overlying skin was prepped and draped in usual sterile fashion. Lidocaine buffered with bicarbonate was used as anesthetic into the skin and subcutaneous tissue up to the level of area of concern. A 7 cm Kopan's needle was used. It was placed via a lateral approach under ultrasound guidance. At this point, wire was placed and the needle was withdrawn. The wire was fixed to patient's skin. Images were marked for surgeon. SITE B: 10:00 papilloma: The shortest pathway for procedure was chosen. Shortest pathway was a lateral approach. The overlying skin was prepped and draped in usual sterile fashion. Lidocaine buffered with bicarbonate was used as anesthetic into the skin and subcutaneous tissue up to the level of area of concern. A 7 cm Kopan's needle was used. It was placed via a lateral approach under ultrasound guidance. At this point, wire was placed and the needle was withdrawn. The wire was fixed to patient's skin. Images were marked for surgeon. Subsequent 2 view mammograms shows both wires to be in satisfactory position relative to both the targeted 5:00 coil clip and mass as well as the 10:00 butterfly clip and associated density. The patient tolerated the procedure well without any immediate complication. The patient was kept in the radiology department for short stay after the procedure and then taken to surgery for surgical excision. Targeted clips, densities, and wires are identified in specimen mammogram. The patient was kept in hospital for short stay after the procedure and then discharged home in stable condition. IMPRESSION: Successful, uncomplicated needle localization with wire placement and surgical excision of right breast: Site A: 5:00 biopsy-proven invasive ductal carcinoma Site B: 10:00 biopsy-proven papilloma Full pathology results to follow. [facility], , 12/13/2024 12:32 PM. Pathology Results: Result: Malignant. Pathology and radiology were reviewed. Findings are concordant. A. 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 Intraductal papilloma closely approximating the medial margin, cannot exclude involvement of the medial margin. Other margins negative. Background fibrocystic changes including moderate to florid usual type ductal hyperplasia and calcifications. Previous biopsy site changes. See Surgical Pathology Cancer Case Summary and Comment. B. RIGHT BREAST TISSUE, 5:00, LUMPECTOMY: Invasive moderately differentiated ductal carcinoma (Grade 2), margins negative for malignancy. Background fibrocystic changes including columnar cell change/columnar cell hyperplasia and previous biopsy site. Benign skin with seborrheic keratosis. See Surgical Pathology Cancer Case Summary. Overall Assessment: Malignant Assessment: MG diagnostic mammo RT wo CAD - Right: Known biopsy proven malignancy, BI-RAD 6. Management: Surgical Consultation of the right breast. Oncologic Management of the right breast. Electronically signed and approved by: Wilman Velásquez M.D. Radiologist
== END 2024-12-13 13:05 | disposition home or self-care (01) ==
LOC: OR 06:17
PROVIDERS: ATTEND Surgery
DX: D05.11 Intraductal carcinoma in situ of right breast (principal); I25.10 Atherosclerotic heart disease of native coronary artery without angina pectoris; E11.9 Type 2 diabetes mellitus without complications; E78.5 Hyperlipidemia, unspecified; E07.9 Disorder of thyroid, unspecified; F41.0 Panic disorder [episodic paroxysmal anxiety]; L82.1 Other seborrheic keratosis; M19.90 Unspecified osteoarthritis, unspecified site; Z80.1 Family history of malignant neoplasm of trachea, bronchus and lung; Z85.3 Personal history of malignant neoplasm of breast; Z90.49 Acquired absence of other specified parts of digestive tract; Z90.89 Acquired absence of other organs; Z96.652 Presence of left artificial knee joint; Z88.0 Allergy status to penicillin; Z88.6 Allergy status to analgesic agent; Z88.5 Allergy status to narcotic agent; Z79.02 Long term (current) use of antithrombotics/antiplatelets; Z79.84 Long term (current) use of oral hypoglycemic drugs; Z79.82 Long term (current) use of aspirin; Z79.890 Hormone replacement therapy; Z79.899 Other long term (current) drug therapy
CPT/HCPCS: 84132; 85730; 88307; 77065; 76098; 19285; 19286; 19301; C1819; J2250; J1644; J1100; J0690; J2405; J2003; J3010; J2704; J0665; J1596

== ENCOUNTER 2024-12-18 10:17 | Emergency (ER) | payer MEDICARE ==
--- NOTE | 2024-12-18 10:39 | ED ---
General Adult HPI - General Stated complaint: chest pain Time Seen by Provider: 12/18/24 10:20 Source: patient, RN notes reviewed, old records reviewed - History of Present Illness Initial comments: This is an 84-year-old female who presents to the emergency department stating that she has a history of A-fib and peripheral edema. Patient comes in today because she was having some pain across her upper abdomen below her rib cage. Patient states she had this for about 2 hours then it went away but when she got back in the ambulance and was riding in the rough ambulance it came back. Patient states she has had this before and has been heartburn. Patient denies any actual chest pain she initially said chest pain but pointed to her abdomen. Patient denies difficulty breathing shortness of breath. Patient has diaphores is. Patient [place] any nausea. Patient denies any recent fever chills or cough - Related Data Home Medications Medication Instructions Recorded Confirmed Atorvastatin [Lipitor] 40 mg PO HS 09/17/22 12/13/24 Ergocalciferol [Vitamin D2 (1250 1,250 mcg PO Q14D 09/17/22 12/09/24 Mcg = 20657 Iu)] Furosemide [Lasix] 40 mg PO DAILY 09/17/22 12/09/24 Levothyroxine Sodium [Synthroid] 125 mcg PO DAILY 09/17/22 12/09/24 lisinopriL 2.5 mg PO DAILY 09/17/22 12/09/24 metFORMIN HCL 500 mg PO BID 09/17/22 12/13/24 Acetaminophen Tab [Tylenol Tab] 1,000 mg PO Q6HR PRN 12/09/24 12/09/24 Menthol [Monroe] 1 lozenge PO DIRECTED PRN 12/09/24 12/09/24 Metoprolol Succinate (ER) [Toprol 12.5 mg PO DAILY 12/09/24 12/09/24 Xl] Previous Rx's Medication Instructions Recorded Aspirin 81 mg PO DAILY #30 tab 11/24/24 Nitroglycerin Sl Tabs [Nitrostat] 0.4 mg SUBLINGUAL Q5M PRN #30 tab 11/24/24 traMADol HCl [Ultram] 50 mg PO Q6H PRN #6 tab 12/13/24 Allergies Allergy/AdvReac Type Severity Reaction Status Date / Time aspirin Allergy Unknown Verified 12/18/24 10:49 Penicillins Allergy Rash/Hives Verified 12/18/24 10:49 codeine AdvReac Nausea & Verified 12/18/24 10:49 Vomiting Review of Systems ROS Statement: Those systems with pertinent positive or pertinent negative responses have been documented in the HPI. ROS Other: All systems not noted in ROS Statement are negative. Past Medical History Past Medical History: Coronary Artery Disease (CAD), Cancer, Chest Pain / Angina, Diabetes Mellitus, Hyperlipidemia, Osteoarthritis (OA), Skin Disorder, Thyroid Disorder Additional Past Medical History / Comment(s): SOB w/minimal exertion, frequent foot swelling, gallstone, ?blood clot behind knee back in the , leg cramps; Aug 2024 dx right breast cancer, chronic loose bowels, bruises easy, "prediabetes", hospitalized 11/21/24 - 11/24/24 w/ chest pain, states she thinks she just had a panic attack History of Any Multi-Drug Resistant Organisms: None Reported Past Surgical History: Appendectomy, Joint Replacement, Orthopedic Surgery, Tonsillectomy Additional Past Surgical History / Comment(s): thyroidectomy, right wrist surg, cataracts removed, left knee replacement, colonoscopies Past Anesthesia/Blood Transfusion Reactions: No Reported Reaction Smoking Status: Never smoker - Past Family History Mother Family Medical History: COPD Additional Family Medical History / Comment(s): of emphysema. phlebitis after childbirth Father Family Medical History: Cancer Additional Family Medical History / Comment(s): lung Brother(s) Family Medical History: Cancer Additional Family Medical History / Comment(s): 1 brother prostate cancer. 1 brother of lung cancer General Exam - General Exam Comments Initial Comments: GENERAL: Patient is well-developed and well-nourished. Patient is nontoxic and well- hydrated and is in mild distress. ENT: Neck is soft and supple. No significant lymphadenopathy is noted. Oropharynx is clear. Moist mucous membranes. Neck has full range of motion without eliciting any pain. EYES: The sclera were anicteric and conjunctiva were pink and moist. Extraocular movements were intact and pupils were equal round and reactive to light. Eyelids were unremarkable. PULMONARY: Unlabored respirations. Good breath sounds bilaterally. No audible rales rhonchi or wheezing was noted. CARDIOVASCULAR: There is a regular rate and rhythm without any murmurs gallops or rubs. ABDOMEN: Soft and nontender with normal bowel sounds. SKIN: Skin is clear with no lesions or rashes and otherwise unremarkable. NEUROLOGIC: Patient is alert and oriented x3. Cranial nerves II through XII are grossly int act. Motor and sensory are also intact. Normal speech, volume and content. Symmetrical smile. MUSCULOSKELETAL: Normal extremities with adequate strength and full range of motion. LYMPHATICS: No significant lymphadenopathy is noted PSYCHIATRIC: Normal psychiatric evaluation. Course Vital Signs 12/18/24 11:04 Temperature 98.3 F Pulse Rate 60 Respiratory 14 Rate Blood Pressure 123/56 O2 Sat by Pulse 99 Oximetry Medical Decision Making - Medical Decision Making EKG is interpreted by myself but EKG shows a sinus rhythm at 61 bpm [place] 135 QRS is 105 QT interval is 452 QTc is 456. Patient's EKG shows no ST segment elevation. Was pt. sent in by a medical professional or institution (, PA, COUNTY AGENT, urgent care, hospital, or snf...) When possible be specific @ -No Did you speak to anyone other than the patient for history (EMS, parent, family, police, friend...)? What history was obtained from this source @ -No Did you review nursing and triage notes (agree or disagree)? Why? @ -I reviewed and agree with nursing and triage notes Were old charts reviewed (outside hosp., previous admission, EMS record, old EKG, old radiological studies, urgent care reports/EKG's, snf records)? Report findings @ -No old charts were reviewed Differential Diagnosis? @ -Differential Abdominal Pain Women: Appendicitis, Cholecystitis, diverticulosis, ischemic bowel, pancreatitis, hepatitis, UTI, gastroenteritis, AAA, incarcerated hernia, bowel obstruction, constipation, inflammatory bowel, hepatitis, peptic ulcer disease, splenic infarction, perforated viscus, vulvitis, ovarian torsion, PID, kidney stone, placenta abruption, this is not meant to be an all-inclusive list EKG interpreted by me (3pts min.). @ -As above X-rays interpreted by me (1pt min.). @ -Chest x-ray shows no acute abnormality CT interpreted by me (1pt min.). @ -None done U/S interpreted by me (1pt. min.). @ -None done What testing was considered but not performed or refused? (CT, X-rays, U/S, labs)? Why? @ -None What meds were considered but not given or refused? Why? @ -None Did you discuss the management of the patient with other professionals (professionals i.e. , PA, COUNTY AGENT, lab, RT, psych nurse, social sciences instructor, wrapper counter, teacher, law enforcement officer, case packer)? Give summary @ -No Was smoking cessation discussed for >3mins.? @ -No Was critical care preformed (if so, how long)? @ -No Were there social determinants of health that impacted care today? How? (Homelessness, low income, unemployed, alcoholism, drug addiction, transportation, low edu. Level, literacy, decrease access to med. care, detention, rehab)? @ -No Was there de-escalation of care discussed even if they declined (Discuss DNR or withdrawal of care, Hospice)? DNR status @ -No What co-morbidities impacted this encounter? (DM, HTN, Smoking, COPD, CAD, Cancer, CVA, ARF, Chemo, Hep., AIDS, mental health diagnosis, sleep apnea, morbid obesity)? @ -None Was patient admitted / discharged? Hospital course, mention meds given and route, prescriptions, significant lab abnormalities, going to OR and other pertinent info. @ -Patient was given Maalox and viscous lidocaine intermediate relief to her pain when it was given to her. Patient had no further chest pain or difficulty breathing. Patient was complaining about some increased welling in her leg so she was given some Lasix. Undiagnosed new problem with uncertain prognosis? @ -No Drug Therapy requiring intensive monitoring for toxicity (Heparin, Nitro, Insulin, Cardizem)? @ -No Were any procedures done? @ -No Diagnosis/symptom? @ -Upper abdominal pain Acute, or Chronic, or Acute on Chronic? @ -Acute Uncomplicated (without systemic symptoms) or Complicated (systemic symptoms)? @ -Complicated Side effects of treatment? @ -No Exacerbation, Progression, or Severe Exacerbation? @ -No Poses a threat to life or bodily function? How? (Chest pain, [place], [place], pneumonia, PE, COPD, DKA, ARF, appy, cholecystitis, CVA, Diverticulitis, Homicidal, Suicidal, threat to staff... and all critical care pts) @ -No - Lab Data Result diagrams: 12/18/24 11:29 12/18/24 11:29 Lab Results 12/18/24 12/18/24 12/18/24 Range/Units 11:29 11:29 11:29 WBC 3.31 L (4.50-10.00) 10*3/uL RBC 3.34 L (4.10-5.20) 10*6/uL Hgb 11.5 L (12.0-15.0) g/dL Hct 33.3 L (37.2-46.3) % MCV 99.7 H (80.0-97.0) fL MCH 34.4 H (27.0-32.0) pg MCHC 34.5 (32.0-37.0) g/dL Plt Count 81 L (140-440) 10*3/uL MPV 11.9 (9.5-12.2) fL Immature Gran % (Auto) 0.3 % Neutrophils % 64.6 % Lymphocytes % 16.9 % Monocytes % 9.4 % Eosinophils % 7.9 % Basophils % 0.9 % Immature Gran # 0.01 (0.00-0.04) 10*3/uL Neutrophils # 2.14 (1.80-7.70) 10*3/uL Lymphocytes # 0.56 L (0.90-5.00) 10*3/uL Monocytes # 0.31 (0.20-1.00) 10*3/uL Eosinophils # 0.26 (0.04-0.35) 10*3/uL Basophils # 0.03 (0.00-0.10) 10*3/uL Manual Slide Review Performed RBC Morphology PT 12.1 (10.0-12.5) sec INR 1.1 (<1.2) APTT 24.4 (22.0-30.0) sec Sodium 139 (137-145) mmol/L Potassium 4.3 (3.5-5.1) mmol/L Chloride 106 (98-107) mmol/L Carbon Dioxide 27 (22-30) mmol/L Anion Gap 6 mmol/L BUN 36 H (7-17) mg/dL Creatinine 1.56 H (0.52-1.04) mg/dL Est GFR (CKD-EPI)AfAm 35 (>60 ml/min/1.73 sqM) Est GFR (CKD-EPI)NonAf 31 (>60 ml/min/1.73 sqM) Glucose 101 H (74-99) mg/dL Calcium 9.0 (8.4-10.2) mg/dL Magnesium 1.8 (1.6-2.3) mg/dL Total Bilirubin 2.1 H (0.2-1.3) mg/dL AST 72 H (14-36) U/L ALT 27 (4-34) U/L Alkaline Phosphatase 98 (38-126) U/L Troponin I (0.000-0.034) ng/mL Total Protein 6.6 (6.3-8.2) g/dL Albumin 3.1 L (3.5-5.0) g/dL Lipase 368 H (23-300) U/L 12/18/24 Range/Units 11:29 WBC (4.50-10.00) 10*3/uL RBC (4.10-5.20) 10*6/uL Hgb (12.0-15.0) g/dL Hct (37.2-46.3) % MCV (80.0-97.0) fL MCH (27.0-32.0) pg MCHC (32.0-37.0) g/dL Plt Count (140-440) 10*3/uL MPV (9.5-12.2) fL Immature Gran % (Auto) % Neutrophils % % Lymphocytes % % Monocytes % % Eosinophils % % Basophils % % Immature Gran # (0.00-0.04) 10*3/uL Neutrophils # (1.80-7.70) 10*3/uL Lymphocytes # (0.90-5.00) 10*3/uL Monocytes # (0.20-1.00) 10*3/uL Eosinophils # (0.04-0.35) 10*3/uL Basophils # (0.00-0.10) 10*3/uL Manual Slide Review RBC Morphology PT (10.0-12.5) sec INR (<1.2) APTT (22.0-30.0) sec Sodium (137-145) mmol/L Potassium (3.5-5.1) mmol/L Chloride (98-107) mmol/L Carbon Dioxide (22-30) mmol/L Anion Gap mmol/L BUN (7-17) mg/dL Creatinine (0.52-1.04) mg/dL Est GFR (CKD-EPI)AfAm (>60 ml/min/1.73 sqM) Est GFR (CKD-EPI)NonAf (>60 ml/min/1.73 sqM) Glucose (74-99) mg/dL Calcium (8.4-10.2) mg/dL Magnesium (1.6-2.3) mg/dL Total Bilirubin (0.2-1.3) mg/dL AST (14-36) U/L ALT (4-34) U/L Alkaline Phosphatase (38-126) U/L Troponin I 0.014 (0.000-0.034) ng/mL Total Protein (6.3-8.2) g/dL Albumin (3.5-5.0) g/dL Lipase (23-300) U/L Disposition Clinical Impression: Gastritis, Abdominal pain Disposition: HOME SELF-CARE Condition: Good Instructions (If sedation given, give patient instructions): Abdominal Pain (ED), Gastritis (ED) Additional Instructions: Patient could take Pepcid twice daily. Patient should take Lasix in the morning 40 mg and at night 40 mg Is patient prescribed a controlled substance at d/c from ED?: No Referrals: Isaac Benitez MD [Primary Care Provider] - 1-2 days Time of Disposition: 13:09
[2024-12-18 11:05] VITALS: TEMP 98.3
[2024-12-18] MEDS: ASPIRIN 81 MG PO STA (11:08)
[2024-12-18] MEDS: LIDOCAINE VISCOUS 2% 15 ML CUP PO ONE (11:15)
[2024-12-18] MEDS: MAG HYDROX/AL HYDROX/SIMETH 30 ML CUP PO STA (11:16)
[2024-12-18 11:44] LABS: ALT 27 U/L (4-34); AST 72 U/L (14-36); African American GFR (CKD) 35 (>60 ml/min/1.73 sqM); Albumin 3.1 g/dL (3.5-5.0); Alkaline Phosphatase 98 U/L (38-126); Anion Gap 6 mmol/L; Blood Urea Nitrogen 36 mg/dL (7-17); Carbon Dioxide 27 mmol/L (22-30); Chloride 106 mmol/L (98-107); Glucose 101 mg/dL (74-99); Lipase 368 U/L (23-300); Magnesium 1.8 mg/dL (1.6-2.3); Non-African American GFR(CKD) 31 (>60 ml/min/1.73 sqM); Potassium 4.3 mmol/L (3.5-5.1); Sodium 139 mmol/L (137-145); Total Bilirubin 2.1 mg/dL (0.2-1.3); Total Protein 6.6 g/dL (6.3-8.2)
[2024-12-18 11:46] LABS: Basophils # (A) 0.03 10*3/uL (0.00-0.10); Basophils % (A) 0.9 %; Eosinophils # (A) 0.26 10*3/uL (0.04-0.35); Eosinophils % (A) 7.9 %; HCT 33.3 % (37.2-46.3); HGB 11.5 g/dL (12.0-15.0); Lymphocytes # (A) 0.56 10*3/uL (0.90-5.00); Lymphocytes % (A) 16.9 %; MCH 34.4 pg (27.0-32.0); MCHC 34.5 g/dL (32.0-37.0); MCV 99.7 fL (80.0-97.0); Mean Platelet Volume 11.9 fL (9.5-12.2); Monocytes # (A) 0.31 10*3/uL (0.20-1.00); Monocytes % (A) 9.4 %; Neutrophils # (A) 2.14 10*3/uL (1.80-7.70); Neutrophils % (A) 64.6 %; Platelet Count 81 10*3/uL (140-440); RBC 3.34 10*6/uL (4.10-5.20); RDW 15.6 % (11.5-14.5); WBC 3.31 10*3/uL (4.50-10.00)
[2024-12-18 11:47] LABS: INR 1.1 (<1.2); Partial Thromboplastin Time 24.4 sec (22.0-30.0); Prothrombin Time 12.1 sec (10.0-12.5)
--- NOTE | 2024-12-18 12:27 | XR ---
EXAMINATION TYPE: XR chest 2V DATE OF EXAM: 12/18/2024 12:11 PM COMPARISON: 11/21/2024 CLINICAL INDICATION: Female, 84 years old with history of Chest Pain, TECHNIQUE: XR chest 2V view(s) obtained. FINDINGS: The heart size is normal. The pulmonary vasculature is prominent. Mild diffuse increased lung markings are present. Correlate for pulmonary edema. IMPRESSION: 1. Clinical consideration for mild volume overload and pulmonary edema. [facility], , 12/18/2024 12:25 PM
[2024-12-18 13:25] VITALS: BP 138/69; PULSE 57; RESP 16
[2024-12-18] MEDS: FUROSEMIDE 10 MG/ML 4 ML VIAL IV STA (13:27)
== END 2024-12-18 13:49 | disposition home or self-care (01) ==
LOC: EC 10:17
DX: K29.70 Gastritis, unspecified, without bleeding (principal); Z88.5 Allergy status to narcotic agent; Z88.6 Allergy status to analgesic agent; Z88.0 Allergy status to penicillin
CPT/HCPCS: 36415; 71046; 80053; 83690; 83735; 84484; 85025; 85610; 85730; 93005; 96374; 99285

== ENCOUNTER → 2025-04-06 | Outpatient (CLI) | payer MEDICARE ==
[2025-04-06 15:33] LABS: Cholesterol 93.00 mg/dL (0.00-200.00); HDL Cholesterol 48.60 mg/dL (40.00-60.00)
[2025-04-06 15:34] LABS: ALT 39 U/L (8-44); AST 65 U/L (13-35); Albumin 2.9 g/dL (3.8-4.9); Albumin/Globulin Ratio 0.78 Ratio (1.60-3.17); Alkaline Phosphatase 81 U/L (41-126); Anion Gap 9.10 mmol/L (4.00-12.00); BUN/Creat Ratio 20.64 Ratio (12.00-20.00); Blood Urea Nitrogen 28.9 mg/dL (9.0-27.0); Calcium 8.6 mg/dL (8.7-10.3); Carbon Dioxide 23.9 mmol/L (21.6-31.8); Chloride 112 mmol/L (96-109); Globulin 3.7 g/dL (1.6-3.3); Glucose 103 mg/dL (70-110); Iron 96 UG/DL (50-170); LDL Cholesterol,Calculated 31.9 mg/dL (0.0-131.0); Potassium 4.1 mmol/L (3.5-5.5); Sodium 145 mmol/L (135-145); Total Iron Binding Capacity 253 UG/DL (228-460); Total Protein 6.6 g/dL (6.2-8.2); Triglycerides 62.30 mg/dL (0.00-149.00); Uric Acid 8.6 mg/dL (2.9-7.7); VLDL Calculation 12.46 mg/dL (5.00-40.00)
[2025-04-06 15:58] LABS: Basophils # (A) 0.02 X 10*3/uL (0.00-0.10); Basophils % (A) 0.7 %; Eosinophils # (A) 0.29 X 10*3/uL (0.04-0.35); Eosinophils % (A) 9.7 %; HCT 32.7 % (37.2-46.3); HGB 10.2 g/dL (12.0-15.0); Immature Grans, Automated 0.30 %; Immature Platelet Fraction 4.3 % (1.1-6.1); Lymphocytes # (A) 0.65 X 10*3/uL (0.90-5.00); Lymphocytes % (A) 21.7 %; MCH 33.1 pg (27.0-32.0); MCHC 31.2 g/dL (32.0-37.0); MCV 106.2 FL (80.0-97.0); Macrocytosis (M) 2+ (None Seen); Monocytes # (A) 0.33 X 10*3/uL (0.20-1.00); Monocytes % (A) 11.0 %; NRBC Per 100 WBC 0 X 10*3/uL (0.00-0.01); Neutrophils # (A) 1.69 X 10*3/uL (1.80-7.70); Neutrophils % (A) 56.6 %; Platelet Count 74 X 10*3/uL (140-440); RBC 3.08 X 10*6/uL (4.10-5.20); RDW 15.1 % (11.5-14.5); WBC 2.99 X 10*3/uL (4.50-10.00)
[2025-04-06 17:14] LABS: NT-Pro-B-Type Natriuretic Pept 916 pg/mL (0-450)
[2025-04-06 20:53] LABS: Ferritin 170.0 ng/mL (10.0-291.0)
== END | disposition home or self-care (01) ==
LOC: LABWHC1 09:14
PROVIDERS: ATTEND Family Medicine
DX: D46.9 Myelodysplastic syndrome, unspecified (principal); I50.22 Chronic systolic (congestive) heart failure; E11.22 Type 2 diabetes mellitus with diabetic chronic kidney disease; N18.31 Chronic kidney disease, stage 3a
CPT/HCPCS: 36415; 80053; 80061; 82728; 83036; 83540; 83550; 83880; 84443; 84550; 85025